=== PATIENT | male | born 1940 | race Caucasian/White ===

== ENCOUNTER 2019-04-18 17:03 | Emergency (ER) | payer MEDICARE ==
[~2019-04-18] VITALS: Ht 182.9 cm; Wt 77.1 kg
[~2019-04-18 17:03] MED LIST: ASPIRIN81 MG PO; CELEBREX100 MG PO; GLYBURIDE5 MG PO; LISINOPRIL PO; METFORMIN HCL1000 MG PO; PRAVASTATIN PO; SOMA350 MG PO; ULTRAM50 MG PO
--- OUTSIDE RECORDS SUMMARY | 2019-04-18 17:07 | XMS REPORT ---
Author Author [facility] Address Unknown Phone Unavailable Care Team Providers [employer] Tender Name Role Phone JOSENIMESH DUMONT SAYED Unavailable Unavailable Payers Payer Name Policy Type Policy Number Effective Date Expiration Date Problems This patient has no known problems. Allergies, Adverse Reactions, Alerts Allergy Name Allergy Type Status Severity Reaction(s) Onset Date Inactive Date Treating Clinician Comments codeine DA Active NE 2018-04-14 00:00:00 hydrocodone DA Active NE 2018-04-14 00:00:00 codeine DA Active NE 2014-12-16 00:00:00 hydrocodone DA Active NE 2014-12-16 00:00:00 Medications This patient has no known medications. Results Test Description Test Time Test Comments Text Results Atomic Results Result Comments POCT-GLUCOSE METER 2018-08-09 07:03:00 POC-GLUCOSE METER (BEAKER) (test mphc=0644) 239 mg/dL 70-110 TESTED AT [address] [address] BASIC METABOLIC [id number] 05:08:00* Test Item Value Reference Range Comments SODIUM (BEAKER) (test zfay=432) 138 meq/L 136-145 POTASSIUM (BEAKER) (test ivxz=832) 4.5 meq/L 3.5-5.1 Specimen slightly hemolyzed CHLORIDE (BEAKER) (test ihki=199) 104 meq/L 98-107 CO2 (BEAKER) (test avqi=975) 26 meq/L 22-29 BLOOD UREA NITROGEN (BEAKER) (test slte=957) 22 mg/dL 7-21 CREATININE (BEAKER) (test jtaj=214) 0.78 mg/dL 0.57-1.25 Specimen slightly hemolyzed GLUCOSE RANDOM (BEAKER) (test bokv=620) 216 mg/dL 70-105 CALCIUM (BEAKER) (test tnmm=260) 8.9 mg/dL 8.4-10.2 EGFR (BEAKER) (test djik=2368) 97 mL/min/1.73 sq m INSUFFICIENT CLINICAL DATA TO CALCULATE ESTIMATED GFR. CBC (HEMOGRAM ONLY)2018-08-09 04:40:00* Test Item Value Reference Range Comments WHITE BLOOD CELL COUNT (BEAKER) (test twdv=612) 5.5 K/ L 3.5-10.5 RED BLOOD CELL COUNT (BEAKER) (test vzef=333) 3.87 M/ L 4.63-6.08 HEMOGLOBIN (BEAKER) (test dxqn=864) 10.9 GM/DL 13.7-17.5 HEMATOCRIT (BEAKER) (test xthp=075) 33.6 % 40.1-51.0 MEAN CORPUSCULAR VOLUME (BEAKER) (test szip=670) 86.8 fL 79.0-92.2 MEAN CORPUSCULAR HEMOGLOBIN (BEAKER) (test bsgr=163) 28.2 pg 25.7-32.2 MEAN CORPUSCULAR HEMOGLOBIN CONC (BEAKER) (test ksxl=058) 32.4 GM/DL 32.3-36.5 RED CELL DISTRIBUTION WIDTH (BEAKER) (test ttsn=518) 14.8 % 11.6-14.4 PLATELET COUNT (BEAKER) (test pucg=555) 196 K/CU MM 150-450 MEAN PLATELET VOLUME (BEAKER) (test hodh=750) 9.9 fL 9.4-12.4 NUCLEATED RED BLOOD CELLS (BEAKER) (test slix=564) 0 /100 WBC 0-0 [id number] 16:04:00* Test Item Value Reference Range Comments ACTIVATED CLOTTING TIME (BEAKER) (test fqwk=595) 131 sec TESTED AT [place] [id number] [facility] [address] [id number] 12:30:00* Test Item Value Reference Range Comments ACTIVATED CLOTTING TIME (BEAKER) (test gcwb=233) 197 sec TESTED AT [place] [address]120 [facility] [address] POCT-GLUCOSE [id number] 10:48:00* Test Item Value Reference Range Comments POC-GLUCOSE METER (BEAKER) (test kcsz=5521) 156 mg/dL 70-[address] [facility] [address] [facility] [address] [id number] 09:28:00* Test Item Value Reference Range Comments ACTIVATED CLOTTING TIME (BEAKER) (test tjeg=832) 362 sec TESTED AT [address] [address] BASIC METABOLIC [id number] 07:21:00* Test Item Value Reference Range Comments SODIUM (BEAKER) (test ggeh=161) 138 meq/L 136-145 POTASSIUM (BEAKER) (test otec=494) 4.0 meq/L 3.5-5.1 CHLORIDE (BEAKER) (test cxvu=423) 103 meq/L 98-107 CO2 (BEAKER) (test rtki=780) 26 meq/L 22-29 BLOOD UREA NITROGEN (BEAKER) (test sdqn=591) 26 mg/dL 7-21 CREATININE (BEAKER) (test xmao=201) 0.79 mg/dL 0.57-1.25 GLUCOSE RANDOM (BEAKER) (test bzzh=584) 140 mg/dL 70-105 CALCIUM (BEAKER) (test bqwe=125) 8.9 mg/dL 8.4-10.2 EGFR (BEAKER) (test zlqj=3162) 95 mL/min/1.73 sq m INSUFFICIENT CLINICAL DATA TO CALCULATE ESTIMATED GFR. CBC (HEMOGRAM ONLY)2018-08-08 07:00:00* Test Item Value Reference Range Comments WHITE BLOOD CELL COUNT (BEAKER) (test ushv=457) 6.2 K/ L 3.5-10.5 RED BLOOD CELL COUNT (BEAKER) (test zquv=325) 4.07 M/ L 4.63-6.08 HEMOGLOBIN (BEAKER) (test oozj=313) 11.3 GM/DL 13.7-17.5 HEMATOCRIT (BEAKER) (test zlep=655) 36.1 % 40.1-51.0 MEAN CORPUSCULAR VOLUME (BEAKER) (test jbja=052) 88.7 fL 79.0-92.2 MEAN CORPUSCULAR HEMOGLOBIN (BEAKER) (test zkim=214) 27.8 pg 25.7-32.2 MEAN CORPUSCULAR HEMOGLOBIN CONC (BEAKER) (test aafr=732) 31.3 GM/DL 32.3-36.5 RED CELL DISTRIBUTION WIDTH (BEAKER) (test mbiq=212) 14.9 % 11.6-14.4 PLATELET COUNT (BEAKER) (test wltl=086) 203 K/CU MM 150-450 MEAN PLATELET VOLUME (BEAKER) (test lstk=560) 9.7 fL 9.4-12.4 NUCLEATED RED BLOOD CELLS (BEAKER) (test ktzv=317) 0 /100 WBC 0-0 BONE [id number] 12:34:00 RUN DATE: 04/18/18 [place] [facility] [employer] [facility] PAGE 1 RUN TIME: 1234 Specimen Inqui ry RUN USER: INTERFACE PATIENT: JAIMEE QUISPE ACCT #: [id number] LOC: [facility] U #: [id number] AGE/SX: 77/M ROOM: RE04/14/18REG DR: Dima Ventura MD : 40 BED: DIS: STATUS: DIS RCR TLOC: SPEC #: [id number] RECD: 04/14/18 STATUS: JAMIA SILVER #: [id number] BRITTANY: 04/14/18 DR: Dima Ventura MD ENTERED: 04/14/18 SP TYPE: BON MARROW OTHR DR: ORDERED: GROSS PROCEDURES: GROSS (04/17/18) TISSUES: BONE MARROW, NOS - BX, CLOT, SMEARS CLINICAL HISTORY COLLECTION DATE: 04/14/2018 ANEMIA COMMENT Corresponding flow cytometry ([facility], [id number]) did not detect any abnormality. CD34 i mmunostain shows 1% blasts (within normal limits). Morphologic evaluation reve als a normocellular marrow for age (25% cellularity) with decreased iron stores (0-1 on a scale of 0 to 4), trilineage hematopoiesis, and mild erythroid changes (atypia of 1 on a scale of 0 to 4). The erythroid changes are mild and can be reactive. However, a myelodysplastic process cannot be entirely ruled out. No lymphoma, acute leukemia, or infiltrative process is detected. Clinical joanne elation is recommended. Conventional cytogenetics and MDS FISH panel are in pr ocess and will be reported in an addendum. FINAL DIAGNOSIS Periphera l blood, bone marrow aspirate, clot section, trephine biopsy (iliac crest): NORMOCELLULAR MARROW WITH MILD ERYTHROID CHANGES AND NO INCREASE IN BLASTS SEE COMMENT BOBY/sm D 41930, 87502, (2)51277, 61069, (3)13768, [phone], 49865 FLOW CYTOMETRY Flow cytomet ry technical component is performed at [facility] and theprofessional component performed at [facility]. The following flow cytometry reportis transcribed below. Please see for any additional information. Clin ical Data CONTINUED ON NEXT PAGE --RUN DATE: 04/18/18 [facility] [facility] [employer] [facility] PAGE 2 RUN TIME: 1234 Specimen Inquiry RUN USER: INTERFACE SPEC #: [id number] PATIENT: JOSE ENRIQUEJAIMEE DURON CYRUS #[id number] (Continued) FLOW CYTOMETRY (Continued) Anemia Interpretation- NO B-CELL CLONALITY OR ABERRANT T-CELL ANTIG EN EXPRESSION- NO INCREASE IN BLASTS Comment:No flow cytometric features of acut e leukemia or non-Hodgkin lymphoma are identified.Morphologic evaluation is in p rocess and will be reported separately. Results Populations IdentifiedMyeloblas ts: 0.4%B-Cells: 1.7% surface-kappa:lambda ratio: 1.3:1 (consistent with polyclo nal B-Cellpopulation)Hematogones: 0.2%T-Cells: 7.0% CD4:CD8 ratio: 1.6:1 (consis tent with benign T-Cell population)NK-Cells: 1.6%Plasma cells: 0.3%Granulocytes: 80.5%Monocytes: 6.2%Viability: 96.9% The remaining events consist of debris and non-staining forms. Evaluated MarkersCD2, CD3, CD4, CD5, CD7, CD8, CD10, CD11b, CD13, CD14, CD16, CD19, CD20, CD22, CD23, CD33,CD34, CD38, CD45, CD56, CD57, CD 64, CD103, CD117, FMC-7, HLA-DR, surface kappa, surfacelambda, 7-AAD (Total vargas ers: 29) This test was developed and its performance characteristics determined by [facility]. It has not been cleared or approved by the U.S. Food and Drug Administration. The FDA has determined thatsuch clearance is not necessary. This test is used for clinicalpurposes. It should not be regarded as investigat ional or for research. This laboratory iscertified under the Clinical Laboratory Improvement Amendments of 1988 (CLIA-88) asqualified to perform high complexity clinical testing. The above report was reviewed and interpretive comments are p rovided. The comments areapproved for the medical records of the identified violet ent with my electronic signature. Electronic SignatureAditya Ritchie Technical component was performed at [facility], [address], [place] [address]. The Professional component [facility] performed at [facility], [address] [place] [address]. CONTINUED ON NEXT PAGE RUN DATE: 04/18/18 [facility] PAGE 3 RUN TIME: 1234 Specimen Inquiry RUN USER: INTERF LILLY SPEC # : [id number] PATIENT: KRISTENTANNERJAIMEE SCOTT JANINA #[id number] (Cont inued) MACROSCOPIC The specimen consists of a peripher al blood smear and aspirate smear slides for processing and evaluation. Recei ricardo in formalin, in a container labeled with the patient's name is a miniscule shepard-red tissue compatible with core biopsy measuring 0.3 cm in length by 0.15 cm in diameter. The tissue is entirely submitted in cassette labeled bx for light decalcification. Received in formalin in another container labeled with the patient's name are red blood clot material measuring 1.5 X 1.0 X 0.2 cm in aggregate. The blood clot is strained through a biopsy bag and entirely sub mitted in cassette labeled clot. Iron stains will be prepared on an aspirate smear slide, core biopsy and clot section. Aspirate material will be sent to [facility] for flow cytometry and other studies. GROSS PERFOR MED AT [facility] [address] [place], [place] [address] [phone])[phone] MICROSCOPIC Microscopic Descripti on: PERIPHERAL BLOOD SMEAR: Red blood cells: Normocytic normochromic. White blood cells: Morphologically within normal limits; No blasts identified. Platelets: Within normal limits. Accompanying CBC report (Date: 8): WBC: 5.6 K/micL Hgb: 9.8 g/dL MCV: 87.4 fL RDW: 15.7% Plt: 185 K/micL 100 cell manual differential count was performed: Neut: 59% Lymph: 21% Tattnall: 16% Eos: 4% Baso: 1% BONE MARROW: Yaneth quacy and general findings Aspirate: Adequate Percentages of 200 cells counted on aspirate smear (Reference ranges are in parentheses): CONTINUED ON NEXT PAGE RUN DATE: 04/18/18 [place] [facility] [employer] [facility] PAGE 4 RUN TIME: 1234 Specimen Inquiry RUN USER: I NTERFACE S PEC #: [id number] PATIENT: JAIMEE QUISPE #[id number] (Continued) MICROSCOPIC (Continued) Myeloblasts: 0 (0-3%) Promyelocytes: 1 (1-8%) Myelocytes: 10 (10-15%) Metamyelocytes: 12 (10-15%) Band/Neutrophils: 33 (25-40%) Eosinophils: 3 (1-5%) Basophils: 0 (0-1%) Lymphocytes: 7 (10-15%) Plasma cells: 1 (0-1%) Monocytes: 5 (0-2%) Proerythroblasts: 2 (0-2%) Other erythroid elements: 26 (15-25%) M:E ratio: 2.1:1 (1.5:1 - 4:1) Core biopsy: Small biopsy; contains margin ally adequate amount of marrow. Bone abnormality: Absent. Clot secti on: Contains low amount of marrow. Cellularity: 25%, normocellular for age. Hematopoietic elements Myeloid: Surveying Crew Rodman and progressive maturation. E rythroid: Show few occasional irregular nuclear contours. Megakaryocytes: Yaneth quate in number and morphology. Infiltrates Blasts: Not inc reased Monocytic cells: Comprise 5% of marrow cellularity and mainly consists of mature forms. Plasma cells: Not increased Lymphoid aggregates: Absent Granulomas: Absent Metastases: Absent Fibrosis: Not identified on routine H E stain Amorphous materials such as amyloid: Not identified on routine H E stain Immunostains with appropriate controls (pe rformed at [facility] and interpreted at [facility]): CD34 orr 1% blasts in single form (within normal limits). Iron stains with a ppropriate controls: On core biopsy, clot section and aspirate smear : Overall, the 3 stains show: Iron stores: 0-1 (scale o f 0 of 4) Ring sideroblasts: Absent MICROSCOPIC PERFORMED AT [facility] [address] CONTINUED ON NEXT PAGE RUN DATE: 04/18/18 [facility] PAGE 5 RUN TIME: 1234 Specimen Inquiry RUN USER: INTERFACE SPEC #: [id number] PATIENT: JAIMEE QUISPE #[id number] (Continued) MICROSCOPIC (Continued) T[place]ON [place] [address] [address] Diagnosis performed at: [facility] [address] [facility] [place] [address] Signed SIGNATURE ON FILE O ChristieSheeba 04/18/18 1234 END OF REPORT BONE [id number] 12:34:00 RUN DATE: 05/02/18 [facility] [facility] [employer] [facility] PAGE 1 RUN TIME: 1111 Specimen Inqui ry RUN USER: INTERFACE PATIENT: JAIMEE QUISPE ACCT #: [id number] LOC: [facility] U #: [id number] AGE/SX: 77/M ROOM: RE04/14/18REG DR: Dima Ventura MD : 40 BED: DIS: STATUS: DIS RCR TLOC: SPEC #: [id number] RECD: 04/14/18 STATUS: JAMIA [facility] #: [id number] BRITTANY: 04/14/18 DR: Dima Ventura MD ENTERED: 04/14/18 SP TYPE: BON MARROW OTHR DR: ORDERED: GROSS PROCEDURES: GROSS (04/17/18) TISSUES: BONE MARROW, NOS - BX, CLOT, SMEARS CLINICAL HISTORY COLLECTION DATE: 04/14/2018 ANEMIA COMMENT Corresponding flow cytometry ([facility], [id number]) did not detect any abnormality. CD34 i mmunostain shows 1% blasts (within normal limits). Morphologic evaluation reve als a normocellular marrow for age (25% cellularity) with decreased iron stores (0-1 on a scale of 0 to 4), trilineage hematopoiesis, and mild erythroid changes (atypia of 1 on a scale of 0 to 4). The erythroid changes are mild and can be reactive. However, a myelodysplastic process cannot be entirely ruled out. No lymphoma, acute leukemia, or infiltrative process is detected. Clinical joanne elation is recommended. Conventional cytogenetics and MDS FISH panel are in pr ocess and will be reported in an addendum. CYTOGENETICS Addendum #1 Entered: 04/27/18 A cytogenetics report is received from [facility] ( [id number]) and the interpretation istranscribed below. Clinical DataAnemia In terpretation ABNORMAL CHROMOSOME ANALYSIS WITH A +15 CLONEKARYOTYPE: 47,XY,+15 [2]/46,XY[19] An abnormal clone with an extra chromosome 15 was observed in two out of twenty-one cellsanalyzed in this patient's specimen. The nineteen remaini ng cell(s) had a normal male (XY) CONTINUED ON NEXT PAGE RUN DATE: 05/02/18 [facility] PAGE 2 RUN TIME: 1111 Specimen Inquiry RUN USER: INTERFACE SPEC #: [id number] PATIENT: JOSE ENRIQUEBLAKEALFREDO JANINA #[id number] (Continued) CYTOGENETICS (Continued) chromosome complement. Trisomy 15 has been found in the general population of aging males with no underlyinghematologic mal ignancy, but can also be observed in patients with MDS, AML, ALL and CLL. This d oes not exclude the possibility of an abnormality that cannot be detected at the band-resolution of this test, exists at a low residual level, or is due to other etiologies. Interpretation of this specimen s cytogenetic results should be made inconjunction with other clinical and laboratory findings. Metaphases Counted: 23 Culture Type: 24 HR, 48 HRMetaphases Analyzed: 21 Banding Technique: GTGMetaphases Karyotyped: 3 Estelle ng Resolution: 425 Electronic Signature Su Mcgee, PhD Darvin Clark MD CPT C ode(s): 94308(x2),04899,46635,19296,96397PRZ Code(s): D64.9 The Technical and Pr ofessional components were performed at [facility], [address] [place] [address] , [address], [place] [address] . Addendum Signed SIGNATURE ON FILE Drew Olivera 04/28/18 1329 FINAL DIAGNOSI S Peripheral blood, bone marrow aspirate, clot section, trephine biopsy (butch c crest): NORMOCELLULAR MARROW WITH MILD ERYTHROID CHANGES AND NO INC REASE IN BLASTS SEE COMMENT BOBY/sm D 71651, 42308, [phone], 88790, ([phone], ([phone], 73692 CONTINUED ON NEXT PAGE RUN DATE: 05/02/18 [facility] PAGE 3 RUN TIME: 05 28 Specimen Inquiry RUN USER: BARRINGTON CARPENTER SPEC #: [id number] PATIENT: JAIMEE QUISPE #[id number] (Co ntinued) FISH Addendum #1 Entered: 04/17 01/02-1110 An MDS FISH report is received from [facility] ([id number]) and the interpre tation is transcribedbelow. Clinical DataAnemia InterpretationMDS PANEL: NORMAL; No abnormalities detected on 5q, CEN7, 7q, CEN8, or 20q. Comment:nuc marce(U7R550 /J3F0936,EGR1) x2[200],(D7Z1x2)[200],(Y8S326,F4J814)x2[200],(D8Z2x2)[200],(D20S1 08,MYBL2)x2[200] A total of 200 interphase nuclei were scored for each myelodysp lastic syndrome (MDS) probeset on cultured bone marrow cells and revealed a norm al result. Analyzed Probes:A2V245/F0D4607 (5p15.31) and EGR1 (5q31.2)F7W223 (7q2 2) and G8Q129 (7q31)D7Z1 (7p11.1-7q11.1)D8Z2 (8p11.1-8q11.1)N69A139 (20q12) and MYBL2 (20q13.12)(All probes [employer]Cell) Interphase FISH is performed to screen for the loci indicated above and does not detectother chromosomal abnormalities. Sc oring Process: The scoring for this case was completed using a per cell nuclei a pproachto signal counting and was performed manually by a licensed technologist. Disclaimer: This test was developed and its performance characteristics determi jonah ALTHIA. It has not been cleared or approved by the [place] d and DrugAdministration. The FDA has determined that such clearance is not nece ssary. This test isused for clinical purposes. It should not be regarded as inve stigational or for research.This laboratory is certified under the Clinical Labo ratory Improvement Amendments of 1988(CLIA-88) as qualified to perform high comp lexity clinical testing. Electronic Ursula Clark MD The Technical and P rofessional components were performed at [facility], [address] [place] [address] , [address], [place] [address]. CON TINUED ON NEXT PAGE RUN DATE: 05/02/18 [facility] PAGE 4 RUN TIME: 1111 Specimen Inquiry RUN USER: INTERFACE SPEC #: [id number] PATIENT: JAIMEE QUISPE #[id number] (Continued) FISH (Continued) Addendum Signed SIGNATURE ON FILE Sheeba Doyle 05/02/18 1111 FLOW CYT OMETRY Flow cytometry technical component is performed at [facility] a nd theprofessional component performed at [facility]. The following flow cytometry reportis transcribed below. Please see [id number] for any additional information. Clinical DataAnemia Interpretation- NO B-CELL CLONALITY OR ABERRA NT T-CELL ANTIGEN EXPRESSION- NO INCREASE IN BLASTS Comment:No flow cytometric f eatures of acute leukemia or non-Hodgkin lymphoma are identified.Morphologic france luation is in process and will be reported separately. Results Populations Iden tifiedMyeloblasts: 0.4%B-Cells: 1.7% surface-kappa:lambda ratio: 1.3:1 (consiste nt with polyclonal B-Cellpopulation)Hematogones: 0.2%T-Cells: 7.0% CD4:CD8 ratio : 1.6:1 (consistent with benign T-Cell population)NK-Cells: 1.6%Plasma cells: 0. 3%Granulocytes: 80.5%Monocytes: 6.2%Viability: 96.9% The remaining events consis t of debris and non-staining forms. Evaluated MarkersCD2, CD3, CD4, CD5, CD7, CD 8, CD10, CD11b, CD13, CD14, CD16, CD19, CD20, CD22, CD23, CD33,CD34, CD38, CD45, CD56, CD57, CD64, CD103, CD117, FMC-7, HLA-DR, surface kappa, surfacelambda, 7- AAD (Total markers: 29) This test was developed and its performance characterist ics determined by [facility]. It has not been cleared or approved by the U.S. Food and Drug Administration. The FDA has determined thatsuch clearance is not necessary. This test is used for clinicalpurposes. It should not be regarde d as investigational or for research. This laboratory iscertified under the Clin [facility] Laboratory Improvement Amendments of 1988 (CLIA-88) asqualified to perform high complexity clinical testing. CONTINUED O N NEXT PAGE RUN DATE: 05/02/18 [facility] PAGE 5 RUN TIME: 1111 Specimen Inquiry RUN USER: INTERFACE SPEC #: [id number] PATIENT : JAIMEE QUISPE #[id number] (Continued) FLOW CYTOMETRY (Continued) The above report was reviewed and interpre tive comments are provided. The comments areapproved for the medical records of the identified patient with my electronic signature. Electronic SignatureJosefina Palacios D.O. The Technical component was performed at [facility], [address], [place] [address]. The Professional compo nent was performed at [facility], [address] [place] [address]. MACROSCOPIC The specimen consists of a peripheral blood smear and as pirate smear slides for processing and evaluation. Received in formalin, in a container labeled with the patient's name is a miniscule shepard-red tissue sindhu tible with core biopsy measuring 0.3 cm in length by 0.15 cm in diameter. The tissue is entirely submitted in cassette labeled bx for light decalcification . Received in formalin in another container labeled with the patient's name a re red blood clot material measuring 1.5 X 1.0 X 0.2 cm in aggregate. The blo od clot is strained through a biopsy bag and entirely submitted in cassette la beled clot. Iron stains will be prepared on an aspirate smear slide, core bio psy and clot section. Aspirate material will be sent to [facility] f or flow cytometry and other studies. GROSS PERFORMED AT [facility] [address] [place] [address] [phone]) [phone] MICROSCOPIC Microscopic Description: PERIPHERAL BLOOD SMEAR: Red blood cells: Normocytic normochromic. White blood cells: Morphologically within normal limits; No blasts identified. Platelets: Within normal limits. Accompanying CBC report (Date: 04/14/18): WBC: 5. 6 K/micL Hgb: 9.8 g/dL MCV: 87.4 fL RDW: 15.7% Plt: 185 K/micL 100 cell manual differential count was performed: Neut: 59% CONTINU ED ON NEXT PAGE RUN DATE: 05/02/18 [facility] PAGE 6 RUN TIME: 1111 Specimen Inquiry RUN USER: INTERFACE SPEC #: [id number] PAT IENT: JAIMEE QUISPE #[id number] (Continued) MICROSCOPIC (Continued) Lymph: 21% Tattnall: 16% Eos: 4% Baso: 1% BONE MARROW: Adequacy and general findings Aspirate: Adequate Percentages of 200 cells counted on aspira te smear (Reference ranges are in parentheses): Myeloblasts: 0 (0-3%) Promyelocytes: 1 (1-8%) Myelocytes: 10 (10-15%) Metamyelocytes: 12 (10-15%) Band/Neutrophils: 33 (25-40%) Eosinophils: 3 (1-5%) Basophils: 0 (0-1%) Lymphocytes: 7 (10-15%) Plasma cells: 1 (0-1%) Monocytes: 5 (0-2%) Proerythroblasts: 2 (0-2%) Other erythroid elements: 26 (15-25%) M:E ratio: 2.1:1 (1.5 :1 - 4:1) Core biopsy: Small biopsy; contains marginally adequate amount of marrow. Bone abnormality: Absent. Clot section: Contains low chris unt of marrow. Cellularity: 25%, normocellular for age. Hematopoietic e lements Myeloid: Surveying Crew Rodman and progressive maturation. Erythroid: Show few oc casional irregular nuclear contours. Megakaryocytes: Adequate in number and m orphology. Infiltrates Blasts: Not increased Monocytic ce lls: Comprise 5% of marrow cellularity and mainly consists of mature forms. Plasma cells: Not increased Lymphoid aggregates: Absent Granulomas: Absent Metastases: Absent Fibrosis: Not identified on rou gurpreet H E stain Amorphous materials such as amyloid: Not identified on routine H E stain Immunostains with appropriate controls (performed at [facility] and interpreted at [facility]): CD34 orr 1% blasts in s rafael form (within normal limits). CONTINUED O N NEXT PAGE RUN DATE: 05/02/18 [facility] PAGE 7 RUN TIME: 1111 Specimen Inquiry RUN USER: INTERFACE SPEC #: [id number] PATIENT : JAIMEE QUISPE #[id number] (Continued) MICROSCOPIC (Continued) Iron stains with appropriate contro ls: On core biopsy, clot section and aspirate smear: Ariande garrett, the 3 stains show: Iron stores: 0-1 (scale of 0 of 4) Ring sideroblasts: Absent MICROSCOPIC PERFORMED AT [facility] [address] [place], [place] [address] PERFORMING SITE Diagnosis performed at: [facility] [address] [place] [address] Signed SIGNATURE ON FILE O ChristieSheeba 04/18/18 1234 END OF REPORT
--- OUTSIDE RECORDS SUMMARY | 2019-04-18 17:08 | XMS REPORT | Encounter Summary ---
Author Organization Unknown Address [address] [place] [address] Phone [phone] Care Team Providers Care Water Project Engineer Name Role Phone Dr. Pacheco García 3 [phone] Zeynep Tapia MD 82 [phone] Mark Medina MD 107 [phone] Rima Figueroa OD 111 [phone] Dima Ventura MD 188 [phone] Reason for Visit lab only visit Instructions 1. Hyperkalemia potassium, serum CMP, serum or plasma 2. Iron deficiency anemia CBC w/ auto diff Discussion Note: None recorded. Patient educational handouts: No information available. Plan of Care Reminders Provider Appointments Return to Office on or around 03/02/2019 Pacheco Deutsch MD Lab Potassium, Serum 12/15/2018 [facility] CBC W/ Auto Diff 12/15/2018 [facility] CMP, Serum or Plasma 12/15/2018 [facility] Referral None recorded. Procedures None recorded. Surgeries None recorded. Imaging None recorded. Medications Name Start Date celecoxib 200 mg capsule TAKE ONE CAPSULE BY MOUTH EVERY DAY WITH MEALS NEEDED. clopidogrel 75 mg tablet Take 1 tablet every day by oral route. Co Q-10 200 mg capsule Take one tablet by mouth twice a day escitalopram 10 mg tablet Take 1 tablet every day by oral route as directed for 30 days. fluticasone propionate 50 mcg/actuation nasal spray,suspension gabapentin 300 mg capsule TAKE ONE CAPSULE BY MOUTH ONCE A DAY NEEDED glimepiride 2 mg tablet TAKE 1 TABLET BY MOUTH EVERY DAY lisinopril 2.5 mg tablet TAKE 1 TABLET BY MOUTH EVERY DAY Longs Adult Low Strength ASA 81 mg tablet,delayed release Take 1 tablet every day by oral route. magnesium oxide 400 mg (241.3 mg magnesium) tablet Take 2 tablets every day by oral route in the evening. metformin 1,000 mg tablet TAKE 1 TABLET BY MOUTH TWICE A DAY montelukast 10 mg tablet TAKE 1 TABLET BY MOUTH EVERY DAY DIRECTED nitroglycerin 0.4 mg sublingual tablet 1 TAB NEEDED omeprazole 40 mg capsule,delayed release TAKE ONE CAPSULE BY MOUTH ONCE IN THE MORNING rosuvastatin 20 mg tablet TAKE 1 TABLET BY MOUTH ONCE IN THE EVENING tamsulosin 0.4 mg capsule TAKE 1 CAPSULE BY MOUTH EVERY DAY tramadol 50 mg tablet TAKE 1 TABLET BY MOUTH EVERY DAY NEEDED Medications Administered None recorded. Vitals None recorded. Lab Results Date Name Specimen Result Interpretation Description Value Range Status Address 11/30/2018 CMP, Serum or Plasma Alt 16 U/L 0-55 U/L Final [facility]: [address] Ast 17 U/L 5-34 U/L Final [facility]: [address] High Bun 29.3 mg/dL 8.4-25.0 mg/dL Final [facility]: [address] Alk Phos 80 unit/L 40-150 unit/L Final [facility]: [address] Glucose 88 mg/dL 70-99 mg/dL Final [facility]: [address] Albumin 3.8 g/dL 3.4-5.1 g/dL Final [facility]: [address] Creatinine 1.20 mg/dL 0.72-1.25 mg/dL Final [facility]: [address] ABNORMAL eGFR Non- 59 mL/min/1.73m2 Final [facility]: [address] Total Bilirubin 0.2 mg/dL 0.2-1.2 mg/dL Final [facility]: [address] eGFR - >60 mL/min/1.73m2 Final [facility]: [address] [place] [address], [place] Sodium 142 mEq/L 135-145 mEq/L Final [facility]: [address] High Potassium 5.4 mEq/L 3.5-5.1 mEq/L Final [facility]: [address] Chloride 109 mmol/L 98-110 mmol/L Final [facility]: [address] Total Protein 6.1 g/dL 6.1-8.2 g/dL Final [facility]: [address] [facility] Low Calcium 8.7 mg/dL 9.0-10.2 mg/dL Final [facility]: [address] Co2 24.4 mmol/L 20.0-32.0 mmol/L Final [facility]: [address] Anion Gap 9 calc Final [facility]: [address] [place] [address], [place] 11/30/2018 Lipid Panel, Serum Low Hdl 38 mg/dL >40 mg/dL Final [facility]: [address] [place] [address] [place] High Triglyceride 151 mg/dL <150 mg/dL Final [facility]: [address] VLDL Calc. 30 mg/dL Final [facility]: [address] cholesterol/HDL Ratio 3.5 mg/dL Final [facility]: [address] non-HDL Cholesterol Calc. 96 mg/dL <160 mg/dL Final [facility]: [address] Cholesterol 134 mg/dL <200 mg/dL Final [facility]: [address] LDL Calc. 66 mg/dL <130 mg/dL Final [facility]: [address] [place] [address], [place] 11/30/2018 HbA1C (Hemoglobin a1C), Blood High A1C W/eag 6.1 % 1.0-5.7 % Final [facility]: [address] Average Blood Glucose 128 mg/dL Final [facility]: [address] Allergies Code Code System Name Reaction Severity Status Onset 2670 RxNorm Codeine Active Problems Name Status Onset Date Source Type 2 Diabetes Mellitus without Complication Active 05/17/2016 Mixed Hyperlipidemia Active 05/17/2016 Hyperkalemia Active 05/17/2016 Body Mass Index 25-29 - Overweight Active 05/17/2016 Anemia Active 05/17/2016 Gastroesophageal Reflux Disease without Esophagitis Active 05/17/2016 Benign Essential Hypertension Active 08/03/2016 Atherosclerosis of Aorta Active 11/23/2016 Chronic Pancreatitis Active 11/23/2016 Benign Prostatic Hyperplasia Active 11/23/2016 Low Back Pain Active 11/23/2016 Carotid Bruit Active 11/23/2016 Angina Pectoris Active 01/03/2017 Chronic Back Pain Active 02/22/2017 Decreased Testosterone Level Active 03/02/2017 Diabetic Neuropathy Active 11/30/2018 Procedures Date Name Performed by 01/15/2018 Colonoscopy Information not available 09/19/2015 Colonoscopy Information not available Carotid Endarterectomy Information not available Tonsillectomy Information not available Appendectomy Information not available Cholecystectomy (Gall Bladder Removal) Information not available Back Surgery Information not available Vaccine List Vaccine Type Hep B, adult 06/29/2016 08/03/2016 01/03/2017 influenza, high dose seasonal 04/08/20160.5 mL 04/12/20170.5 mL 03/30/20180.5 mL influenza, unspecified formulation 06/17/2015 pneumococcal conjugate PCV 13 08/03/20160.5 mL pneumococcal polysaccharide PPV23 03/30/20180.5 mL zoster 11/23/20160.65 mL Social History Smoking Status Former Smoker Past Encounters 12/15/2018 Hyperkalemia; Iron Deficiency Anemia Pacheco Deutsch MD: [address] [place] [address], Ph. 11/30/2018 Irritability and Anger; Type 2 Diabetes Mellitus; Hyperlipidemia; Chronic Back Pain; Benign Prostatic Hyperplasia; Diabetic Neuropathy; Angina Pectoris; Anemia; Stented Coronary Artery; Body Mass Index 25-29 - Overweight Pacheco Deutsch MD: [address] [place] [address], Ph. History of Present Illness None recorded. Review of Systems None recorded. Physical Exam None recorded.
--- OUTSIDE RECORDS SUMMARY | 2019-04-18 17:08 | XMS REPORT | Encounter Summary ---
Author Organization Unknown Address [address] [place] [address] Phone [phone] Care Team Providers Care Cyber Systems Operations Specialist Name Role Phone Dr. Pacheco García 3 [phone] Zeynep Tapia MD 82 [phone] Mark Medina MD 107 [phone] Rima Figueroa OD 111 [phone] Dima Ventura MD 188 [phone] Reason for Visit Chronic back pain; Type 2 diabetes mellitus without complication Instructions 1. Irritability and anger escitalopram 10 mg tablet 2. Type 2 diabetes mellitus metformin 1,000 mg tablet HbA1c (hemoglobin A1c), blood glimepiride 2 mg tablet 3. Hyperlipidemia high cholesterol: care instructions lipid panel, serum CMP, serum or plasma 4. Chronic back pain celecoxib 200 mg capsule 5. Benign prostatic hyperplasia 6. Diabetic neuropathy gabapentin 300 mg capsule 7. Angina pectoris 8. Anemia 9. Stented coronary artery clopidogrel 75 mg tablet 10. Body mass index 25-29 - overweight learning about healthy weight Discussion Note: None recorded. Plan of Care Reminders Provider Appointments Return to Office on or around 03/02/2019 Pacheco Deutsch MD Lab HbA1C (Hemoglobin a1C), Blood 11/30/2018 [facility] Lipid Panel, Serum 11/30/2018 [facility] CMP, Serum or Plasma 11/30/2018 [facility] Referral None recorded. Procedures None recorded. [...] oral route as directed for 30 days. gabapentin 300 mg capsule TAKE ONE CAPSULE [...] DAY NEEDED Medications Administered None recorded. Vitals Height Weight BMI Blood Pressure 5 ft 5 in 171 lbs 28.5 kg/m2 (1) 100/58 mm[Hg] (2) 111/57 mm[Hg] Lab Results None recorded. Allergies Code Code System Name Reaction Severity Status Onset 2669 RxNorm Codeine Active Problems Name Status Onset [...] History Smoking Status Former Smoker Past Encounters 11/30/2018 Irritability and Anger; Type 2 Diabetes Mellitus; Hyperlipidemia; Chronic Back Pain; Benign Prostatic Hyperplasia; Diabetic Neuropathy; Angina Pectoris; Anemia; Stented Coronary Artery; Body Mass Index 25-29 - Overweight Pacheco Julio César Deutsch MD: [address] [place] [address], Ph. History of Present Illness Note:F/u on chronic conditions. Needs refills. Compliant with meds, diet and exercise. Glucose readings at home 150s-160s fasting. Not checking BPs at home. No side effects. Complaining of persistent irritability and angriness on and off since a few months ago. Denies anxiety/depression, suicidal/homicidal thoughts. Review of Systems Comprehensive General Adult ROS Reported By: Patient Constitutional: Constitutional: no fever Eyes: Eyes: no vision change Cardiovascular: Cardiovascular: no chest pain, no palpitations, no lightheadedness Respiratory: Respiratory: no cough, no wheezing, no shortness of breath Gastrointestinal: Gastrointestinal: no abdominal pain, no nausea, no vomiting, no constipation, no diarrhea Musculoskeletal: Musculoskeletal: back pain Neurologic: Neurologic: no loss of consciousness, no headaches Psychiatric: Psych: no depression, no alcohol abuse, no anxiety, no suicidal thoughts Physical Exam General Adult Exam (male) Reported By: Patient Constitutional: General Appearance: healthy-appearing, overweight. Level of Distress: NAD. Ambulation: ambulating normally Psychiatric: Insight: good judgement. Mental Status: active and alert, normal mood, normal affect. Orientation: to time, to place, to person. Memory: recent memory normal, remote memory normal Eyes: Lids and Conjunctivae: non-injected, no discharge Neck: Neck: supple, trachea midline Lungs: Auscultation: breath sounds normal Cardiovascular: Heart Auscultation: RRR, normal S1, normal S2, no murmurs Musculoskeletal:: Motor Strength and Tone: normal, normal tone. Joints, Bones, and Muscles: normal movement of all extremities, no contractures, no bony abnormalities, no malalignment, no tenderness. Extremities: no edema Neurologic: Gait and Station: normal gait. Cranial Nerves: grossly intact. Coordination and Cerebellum: no tremor
--- OUTSIDE RECORDS SUMMARY | 2019-04-18 17:08 | XMS REPORT | Encounter Summary ---
Author Organization Unknown Address [address] [place] [address] Phone [phone] Care Team Providers Care Carpenter'S Helper Name Role Phone Dr. Pacheco García 3 [phone] Zeynep Tapia MD 82 [phone] Mark Medina MD 107 [phone] Rima Figueroa 111 [phone] Dima Ventura MD 188 [phone] Reason for Visit lab only visit Instructions 1. Hyperkalemia potassium, serum Discussion Note: None recorded. Patient educational handouts: No information available. Plan of Care Reminders Provider Appointments Return to Office on or around 03/02/2019 Pacheco Deutsch MD Lab Potassium, Serum 12/15/2018 [facility] Referral None recorded. Procedures [...] Plasma Alt 16 U/L 0-55 U/L Final [facility]: [address] Ast 17 U/L 5-34 U/L Final [facility]: [address] High Bun 29.3 mg/dL 8.4-25.0 mg/dL Final [facility]: [address] Alk Phos 80 unit/L 40-150 unit/L Final [facility]: [address] Glucose 88 mg/dL 70-99 mg/dL Final [facility]: [address] Albumin 3.8 g/dL 3.4-5.1 g/dL Final [facility]: [address] Creatinine 1.20 mg/dL 0.72-1.25 mg/dL Final [facility]: [address] ABNORMAL eGFR Non- 59 mL/min/1.73m2 Final [facility]: [address] Total Bilirubin 0.2 mg/dL 0.2-1.2 mg/dL Final [facility]: [address] eGFR - >60 mL/min/1.73m2 Final [facility]: [address] Sodium 142 mEq/L 135-145 mEq/L Final [facility]: [address] High Potassium 5.4 mEq/L 3.5-5.1 mEq/L Final [facility]: [address] Chloride 109 mmol/L 98-110 mmol/L Final [facility]: [address] Total Protein 6.1 g/dL 6.1-8.2 g/dL Final [facility]: [address] [place] [address] Low Calcium 8.7 mg/dL 9.0-10.2 mg/dL Final [facility]: [address], [place] Co2 24.4 mmol/L 20.0-32.0 mmol/L Final [facility]: [address] [facility] Anion Gap 9 calc Final [facility]: [address], [place] 11/30/2018 Lipid Panel, Serum Low Hdl 38 mg/dL >40 mg/dL Final [facility]: [address] [place] [address], [place] High Triglyceride 151 mg/dL <150 mg/dL Final [facility]: [address] [place] [address], [place] VLDL Calc. 30 mg/dL Final [facility]: [address] cholesterol/HDL Ratio 3.5 mg/dL Final [facility]: [address] non-HDL Cholesterol Calc. 96 mg/dL <160 mg/dL Final [facility]: [address] Cholesterol 134 mg/dL <200 mg/dL Final [facility]: [address] LDL Calc. 66 mg/dL <130 mg/dL Final [facility]: [address] [place] [address], [place] 11/30/2018 HbA1C (Hemoglobin a1C), Blood High A1C W/eag 6.1 % 1.0-5.7 % Final [facility]: [address] Average Blood Glucose 128 mg/dL Final [facility]: [address] Allergies Code Code System Name Reaction Severity Status Onset 8288 RxNorm Codeine Active Problems Name Status Onset [...] Smoking Status Former Smoker Past Encounters 12/15/2018 Hyperkalemia Pacheco Deutsch MD: [address] [place] [address], Ph. 11/30/2018 Irritability and Anger; Type 2 Diabetes Mellitus; Hyperlipidemia; Chronic Back Pain; Benign Prostatic Hyperplasia; Diabetic Neuropathy; Angina Pectoris; Anemia; Stented Coronary Artery; Body Mass Index 25-29 - Overweight Pacheco Deutsch MD: [address] [place] [address], Ph. History of Present Illness None recorded. Review of Systems None recorded. Physical Exam None recorded.
--- OUTSIDE RECORDS SUMMARY | 2019-04-18 17:08 | XMS REPORT ---
Author Organization Unknown Address [address] [place] [address] Phone [phone] Care Team Providers Care Director Of Analytics Name Role Phone SAYED JADEN BARONE 82 [phone] LUDY YEN MD 107 [phone] HANNAH CARRILLO MD 3 [phone] Allergies Code Code System Name Reaction Severity Status Onset 2670 RxNorm Codeine Active Medications Name Status Start Date Stop Date amoxicillin 500 mg capsule Completed 04/08/2016 amoxicillin 875 mg tablet Completed 11/23/2016 azithromycin 250 mg tablet Completed 10/19/2017 Bromfed DM 2 mg-30 mg-10 mg/5 mL syrup Take 10 mL every 4 hours by oral route. Completed 10/19/2017 bvcnqxwgyg-dqckbdkajdsdf-eqgpxssp 50 mg-325 mg-40 mg capsule Take 1 capsule as needed by oral route. Completed 04/08/2016 rbucigzyec-ytccvkubrothn-fpmeczry 50 mg-325 mg-40 mg tablet Completed 04/08/2016 carisoprodol 350 mg tablet TAKE 1 TABLET BY MOUTH 3 TIMES A DAY Completed 06/29/2016 ceftriaxone 1 gram solution for injection Take 1 g by injection route. Completed 10/19/2017 celecoxib 200 mg capsule TAKE ONE CAPSULE BY MOUTH EVERY DAY WITH MEALS Active Not available cephalexin 500 mg capsule Completed 11/02/2016 chlorhexidine gluconate 0.12 % mouthwash ONCE DAILY Completed 01/03/2017 ciprofloxacin 750 mg tablet Take 1 tablet every 12 hours by oral route as directed for 10 days. Active Not available clopidogrel 75 mg tablet Active Not available Co Q-10 200 mg capsule Take one tablet by mouth twice a day Active Not available Creon 24,000-76,000-120,000 unit capsule,delayed release Completed 04/08/2016 cyclobenzaprine 5 mg tablet Take 1 tablet every day by oral route. Completed 11/02/2016 Denta 5000 Plus 1.1 % cream Take by dental route. Completed 04/08/2016 dexamethasone 4 mg/mL injection solution Take 2 mL by injection route. Completed 07/12/2017 Dexilant 60 mg capsule, delayed release Take 1 capsule as needed by oral route. Completed 11/02/2016 doxycycline monohydrate 100 mg tablet Take 1 tablet twice a day by oral route as directed for 10 days. Completed 11/04/2016 Fioricet 50 mg-300 mg-40 mg capsule Take 1 capsule as needed by oral route. Completed 06/29/2016 fluticasone 50 mcg/actuation nasal spray,suspension Completed 09/29/2017 gabapentin 300 mg capsule Active Not available gabapentin 600 mg tablet Completed 02/22/2017 glimepiride 2 mg tablet Active Not available glimepiride 4 mg tablet Completed 04/08/2016 Kenalog 40 mg/mL suspension for injection Take 1 mL by injection route. Completed 10/19/2017 ketorolac 0.4 % eye drops TID Completed 09/29/2017 ketorolac 0.5 % eye drops Instill 1 drop 3 times a day by ophthalmic route for 7 days. Completed 07/12/2017 lisinopril 10 mg tablet TAKE 1 TABLET BY MOUTH EVERY DAY Completed 08/03/2016 lisinopril 2.5 mg tablet TAKE 1 TABLET BY MOUTH EVERY DAY Active Not available Longs Adult Low Strength ASA 81 mg tablet,delayed release Take 1 tablet every day by oral route. Active Not available loratadine 10 mg tablet Take 1 tablet every day by oral route at bedtime for 10 days. Completed 11/23/2016 Lotemax 0.5 % eye gel drops Completed 09/29/2017 magnesium oxide 400 mg tablet Take 2 tablets every day by oral route in the evening. Active Not available metformin 1,000 mg tablet Active Not available metformin 500 mg tablet Completed 01/03/2017 metronidazole 500 mg tablet Take 1 tablet every 6 hours by oral route as directed for 10 days. Active Not available montelukast 10 mg tablet TAKE 1 TABLET BY MOUTH ONCE A DAY DIRECTED Completed 09/29/2017 kjqylpmv-ygbctydag-tkjypepg 3.5 mg/mL-10,000 unit/mL-0.1% eye drops Completed 07/12/2017 nitroglycerin 0.4 mg sublingual tablet 1 TAB NEEDED Active Not available omeprazole 40 mg capsule,delayed release Active Not available OneTouch Delica Lancets 33 gauge Active Not available OneTouch Ultra Test strips Active Not available OneTouch Ultra2 kit Completed 06/29/2016 pravastatin 40 mg tablet Completed 02/22/2017 ProAir HFA 90 mcg/actuation aerosol inhaler Inhale 2 puffs every 4 hours by inhalation route. Active Not available rosuvastatin 10 mg tablet Take 1 tablet every day by oral route in the evening. Completed 03/02/2017 rosuvastatin 20 mg tablet TAKE ONE TABLET BY MOUTH DAILY IN THE EVENING Active Not available Suprep Bowel Prep Kit 17.5 gram-3.13 gram-1.6 gram oral solution Completed 04/08/2016 tamsulosin 0.4 mg capsule Active Not available Tessalon Perles 100 mg capsule Take 1 capsule 3 times a day by oral route as needed. Completed 06/30/2017 tramadol 37.5 mg-acetaminophen 325 mg tablet Completed 11/23/2016 tramadol 50 mg tablet Take 1 tablet twice a day by oral route as needed. Active Not available Zofran 8 mg tablet Take 1 tablet twice a day by oral route as needed for 7 days. Active Not available Zostavax (PF) 19,400 unit/0.65 mL subcutaneous suspension Completed 01/03/2017 Problems Name Status Onset Date Source Type [...] Active 02/22/2017 Decreased Testosterone Level Active 03/02/2017 Procedures Date Name Performed by 09/19/2015 Colonoscopy Notes: REPEAT IN 5 YRS Information not available Carotid Endarterectomy Notes: Right Information not available Tonsillectomy Information not available Appendectomy Information not available Cholecystectomy Information not available Back Surgery Notes: L4-L5 Herniated Disc Information not available 11/02/2016 Electrocardiogram [facility] [address] [place] [address] ([address]) 10/19/2017 CT, Abdomen + Pelvis, W/wo Contrast [facility] [address] [place] [address] (Work [address]) Notes: Lysis of Adhesions, Abd Lab Results Date Name Specimen Result Interpretation Description Value Range Status Address 09/29/2017 CBC W/ Auto Diff Wbc 8.32 x10*3/L 4.23-9.07 x10*3/L Final [facility]: [address] [place] Low Rbc 3.59 10*12/L 4.63-6.08 10*12/L Final [facility] [address] [facility] Hemoglobin 9.60 g/dL 13.70-17.50 g/dL Final [facility]: [address] [facility] Low Hematocrit 30.6 % 40.1-51.0 % Final [facility]: [address] [facility] Mcv 85.2 fL 80.0-100.[address] [facility]: [address] [facility] Mch 26.7 pg 25.7-32.[address] [facility]: [address] [facility]c 31.4 g/dL 32.3-36.5 g/dL Final [facility]: [address] [facility] High RDW-SD 48.1 fL 35.1-43.[address] [facility]: [address] [facility] Platelet Count 227.0 k/uL 163.0-337.0 k/uL Final [facility]: [address] [facility] Mpv 11.1 fL 7.5-11.[address] [facility]: [address] [facility] High Neut% 73.1 % 34.0-67.9 % Final [facility]: [address] [facility] Low Lymph% 13.9 % 21.8-53.1 % Final [facility]: [address] [facility] Mon% 10.7 % 5.3-12.2 % Final [facility]: [address] [facility] Eos% 1.7 % 0.8-7.0 % Final [facility]: [address] [place] Baso% 0.6 % 0.2-1.2 % Final [facility]: [address] [place] High Neut# 6.1 x10*3/L 1.8-5.4 x10*3/L Final [facility]: [address] [place] Low Lymph# 1.2 x10*3/L 1.3-3.6 x10*3/L Final [facility]: [address] [place] High Mon# 0.9 x10*3/L 0.3-0.8 x10*3/L Final [facility]: [address] [place] Eos# 0.14 x10*3/L 0.04-0.54 x10*3/L Final [facility]: [address] Bennett [facility] [place] Baso# 0.05 x10*3/L 0.01-0.08 x10*3/L Final [facility]: [address] C[address] Kamara [facility] 09/29/2017 Ferritin, Serum or Plasma Low Ferritin 7.05 NG/mL 21.81- 274.66 NG/mL Final [facility]: [address] [facility] [facility] 09/29/2017 Rapid Flu (A+B) Type Flu a negative [facility]: [address] [place] [address] Type Flu B negative [facility]: [address] [facility] 07/12/2017 HbA1C (Hemoglobin a1C), Blood High A1C W/eag 6.6 % 1.0-5.7 % Final [facility]: [address] Kam[address] Average Blood Glucose 143 mg/dL Final [facility]: 55 [facility] 06/30/2017 CBC W/ Auto Diff Wbc 7.59 x10*3/L 4.23-9.07 x10*3/L Final [facility]: [address] [place] Low Rbc 3.54 10*12/L 4.63-6.08 10*12/L Final [facility]: [address] [facility] [facility] Low Hemoglobin 9.50 g/dL 13.70-17.50 g/dL Final [facility]: [address] [place] Low Hematocrit 31.8 % 40.1-51.0 % Final [facility]: [address] [place] Mcv 89.8 fL 80.0-100.[address] [facility]: [address] [place] Mch 26.8 pg 25.7-32.[address] [facility]: [address] [place] Low Mchc 29.9 g/dL 32.3-36.5 g/dL Final [facility]: [address] [place] High RDW-SD 47.8 fL 35.1-43.[address] [facility]: [address] [facility] Platelet Count 209.0 k/uL 163.0-337.0 k/uL Final [facility]: [address] [facility] Mpv 11.5 fL 7.5-11.[address] [facility]: [address] [facility] Neut% 65.6 % 34.0-67.9 % Final [facility]: [address] [place] Low Lymph% 19.5 % 21.8-53.1 % Final [facility] [facility] Mon% 12.3 % 5.3-12.2 % Final [facility]: [address] [facility] Eos% 2.2 % 0.8-7.0 % Final [facility]: [address] [facility] Baso% 0.4 % 0.2-1.2 % Final [facility]: [address] [facility] Neut# 5.0 x10*3/L 1.8-5.4 x10*3/L Final [facility]: [address] [facility] Lymph# 1.5 x10*3/L 1.3-3.6 x10*3/L Final [facility] [address] [facility] Mon# 0.9 x10*3/L 0.3-0.8 x10*3/L Final [facility]: [address] Eos# 0.17 x10*3/L 0.04-0.54 x10*3/L Final [facility]: [address] Baso# 0.03 x10*3/L 0.01-0.08 x10*3/L Final [facility]: [address] 03/02/2017 Testosterone, Total, Serum Low Testosterone, Total 54.51 NG/dL 220.91-715.81 NG/dL Final [facility]: [address] 02/23/2017 Testosterone, Total, Serum Low Testosterone, Total 85.31 NG/dL 220.91-715.81 NG/dL Final [facility]: [address] 02/15/2017 CMP, Serum or Plasma Alt 16 U/L 0-55 U/L Final [facility]: [address] Ast 15 U/L 5-34 U/L Final [facility]: [address] Bun 19.9 mg/dL 8.4-25.7 mg/dL Final [facility]: [address] Alk Phos 65 unit/L 40-150 unit/L Final [facility]: [address] High Glucose 139 mg/dL 70-99 mg/dL Final [facility]: [address] Albumin 3.5 g/dL 3.5-5.0 g/dL Final [facility]: [address] Creatinine 0.93 mg/dL 0.72-1.25 mg/dL Final [facility]: [address] eGFR Non- >60 mL/min/1.73m2 >60 mL/min/1.73m[address] [facility]: [address] Total Bilirubin 0.3 mg/dL 0.2-1.2 mg/dL Final [facility]: [address] eGFR - >60 mL/min/1.73m2 >60 mL/min/1.73m2 [address] [facility]: [address] Sodium 140 mEq/L 136-145 mEq/L Final [facility]: [address] Potassium 4.7 mEq/L 3.5-5.1 mEq/L Final [facility]: [address] Chloride 106 mmol/L 98-107 mmol/L Final [facility]: [address] Low Total Protein 6.1 g/dL 6.4-8.3 g/dL Final [facility]: [address] Low Calcium 8.4 mg/dL 8.8-10.0 mg/dL Final [facility]: [address] Co2 24.5 mmol/L 23.0-31.0 mmol/L Final [facility]: [address] Anion Gap [address] [facility]: [address] 02/15/2017 Lipid Panel, Serum Hdl 40 mg/dL 40-60 mg/dL Final [facility]: [address] Triglyceride 107 mg/dL 0-149 mg/dL Final [facility]: [address] VLDL Calc. 21 mg/dL Final [facility]: [address] cholesterol/HDL Ratio 4 mg/dL Final [facility]: [address] non-HDL Cholesterol Calc. 104 mg/dL 0-160 mg/dL Final [facility]: [address] Cholesterol 144 mg/dL 0-199 mg/dL Final [facility]: [address] LDL Calc. 83 mg/dL 0-130 mg/dL Final [facility]: [address] [place] [address], [place] 02/15/2017 PSA, Serum or Plasma PSA, Total 0.38 NG/mL <4.00 NG/mL Final [facility]: [address] 02/15/2017 HbA1C (Hemoglobin a1C), Blood High A1C W/eag 6.3 % 1.0-5.7 % Final [facility]: [address] [place] [address] Average Blood Glucose 134 mg/dL Final [facility]: [address] [place] 11/12/2016 CMP, Serum or Plasma High Glucose 107 mg/dL 65-99 mg/dL Final [facility]: [address] Normal Urea Nitrogen (BUN) 19 mg/dL 7-25 mg/dL Final [facility]: [address] [place] [address] Normal Creatinine 1.01 mg/dL 0.70-1.18 mg/dL Final [facility]: [address] Normal eGFR Non-afr. Faroese 72 mL/min/1.73m2 > or=60 mL/min/1.73m2 [address] [facility]: [address] [place] [address] Normal eGFR 84 mL/min/1.73m2 > or=60 mL/min/1.73m2 [address] [facility]: [address] BUN/creatinine Ratio not applicable (calc) 6-22 (calc) Final [facility]: [address] Normal Sodium 142 mmol/L 135-146 mmol/L Final [facility]: [address] Normal Potassium 4.5 mmol/L 3.5-5.3 mmol/L Final [facility]: [address] Normal Chloride 106 mmol/L 98-110 mmol/L Final [facility]: [address] Normal Carbon Dioxide 24 mmol/L 20-31 mmol/L Final [facility]: [address] Normal Calcium 8.7 mg/dL 8.6-10.3 mg/dL Final [facility]: [address] [facility] Low Protein, Total 6.0 g/dL 6.1-8.1 g/dL Final [facility]: [address] Normal Albumin 3.8 g/dL 3.6-5.1 g/dL Final [facility]: [address] Normal Globulin 2.2 g/dL (calc) 1.9-3.7 g/dL (calc) Final [facility]: [address] Normal Albumin/globulin Ratio 1.7 (calc) 1.0-2.5 (calc) Final [facility]: [address] Normal Bilirubin, Total 0.2 mg/dL 0.2-1.2 mg/dL Final [facility]: [address] Normal Alkaline Phosphatase 74 U/L 40-115 U/L Final [facility]: [address] Normal Ast 16 U/L 10-35 U/L Final [facility]: [address] Normal Alt 13 U/L 9-46 U/L Final [facility]: [address] 11/12/2016 Lipid Panel, Serum Normal Cholesterol, Total 156 mg/dL 125- 200 mg/dL Final [facility]: [address] Normal HDL Cholesterol 40 mg/dL > or=40 mg/dL Final [facility]: [address] Normal Triglycerides 136 mg/dL <150 mg/dL Final [facility]: [address] Normal LDL-cholesterol 89 mg/dL (calc) <130 mg/dL (calc) Final [facility]: [address] Normal Chol/hdlc Ratio 3.9 (calc) < or=5.0 (calc) Final [facility]: [address] Normal Non HDL Cholesterol 116 mg/dL (calc) Final [facility]: [address] 11/12/2016 HbA1C (Hemoglobin a1C), Blood High A1C W/eag 6.4 % 1.0-5.7 % Final [facility]: [address] Average Blood Glucose 137 mg/dL Final [facility]: [address] 08/03/2016 CMP, Serum or Plasma Alt 17.0 U/L 0.0-55.0 U/L Final [facility]: [address] Ast 18.0 U/L 5.0-34.0 U/L Final [facility]: [address] [place] Bun 24.0 mg/dL 8.0-26.0 mg/dL Final [facility]: [address] [facility] Alk Phos 90.0 unit/L 40.0-150.0 unit/L Final [facility]: [address] [facility] Glucose 70.0 mg/dL 70.0-99.0 mg/dL Final [facility]: [address] [facility] Albumin 3.8 g/dL 3.5-5.0 g/dL Final [facility]: [address] [facility] Creatinine 1.2 mg/dL 0.7-1.3 mg/dL Final [facility]: [address] [place] [address] Low eGFR Non- 59.0 mL/min/1.73m2 >60.0 mL/min/1.73m2 [address] [facility]: [address] Total Bilirubin 0.3 mg/dL 0.2-1.2 mg/dL Final [facility]: [address] eGFR - >60 mL/min/1.73m2 >60.0 mL/min/1.73m[address] [facility]: [address] [facility] Sodium 142.0 mEq/L 137.0-144.0 mEq/L Final [facility]: [address] [facility] Potassium 4.6 mEq/L 3.5-5.0 mEq/L Final [facility]: [address] [place] [address] Chloride 108.0 mmol/L 101.0-110.0 mmol/L Final [facility]: [address] [facility] Total Protein 6.4 g/dL 6.4-8.3 g/dL Final [facility]: [address] [facility] Calcium 8.7 mg/dL 8.4-10.2 mg/dL Final [facility]: [address] [facility] Co2 23 mmol/L 22-31 mmol/L Final [facility]: [address] Anion Gap 11.[address] [facility]: [address] [place] [address], [place] 08/03/2016 Lipid Panel, Serum Hdl 40.0 mg/dL 40.0-60.0 mg/dL Final [facility]: [address] High Triglyceride 253.0 mg/dL 0.0-149.0 mg/dL Final [facility]: [address] VLDL Calc. 50.6 mg/dL Final [facility]: [address] cholesterol/HDL Ratio 4.9 mg/dL Final [facility]: [address] non-HDL Cholesterol Calc. 155.0 mg/dL 0.0-160.0 mg/dL Final [facility]: [address] Cholesterol 195.0 mg/dL 0.0-199.0 mg/dL Final [facility]: [address] LDL Calc. 104.4 mg/dL 0.0-130.0 mg/dL Final [facility]: [address] [place] [address], [place] 08/03/2016 Potassium, Serum Potassium 4.6 mEq/L 3.5-5.0 mEq/L Final [facility]: [address] [place] [address], [place] 08/03/2016 HbA1C (Hemoglobin a1C), Blood High A1C W/eag 6.0 % 1.0-5.7 % Final [facility]: [address] Average Blood Glucose 126 mg/dL Final [facility]: [address] [place] [address], [place] 08/03/2016 Vitamin B12 + Folate, Serum or Blood Folate 5.6 NG/mL Final [facility]: [address] [place] [address] Vitamin B12 244 pg/mL 213-816 pg/mL Final [facility]: [address] 08/03/2016 Iron + Total Iron-binding Capacity (TIBC), Serum Normal Iron, Total 56 mcg/dL 50-180 mcg/dL Final [facility]: [address] Normal Iron Binding Capacity 356 mcg/dL (calc) 250-425 mcg/dL (calc) Final [facility]: [address] [place] [address] Normal % Saturation 16 % (calc) 15-60 % (calc) Final [facility]: [address] [place] [address] 07/27/2016 CBC W/ Auto Diff No observation recorded. [facility] [address], [place] 06/29/2016 Iron + Total Iron-binding Capacity (TIBC), Serum Normal Iron, Total 53 mcg/dL 50-180 mcg/dL Final [facility]: [address] [place] [address] Normal Iron Binding Capacity 360 mcg/dL (calc) 250-425 mcg/dL (calc) Final [facility]: [address] [place] [address] Normal % Saturation 15 % (calc) 15-60 % (calc) Final [facility]: [address] [place] [address] 06/29/2016 Potassium, Serum Potassium 4.9 mEq/L 3.5-5.0 mEq/L Final [facility]: [address] [place] [address], [place] 06/29/2016 Vitamin B12 + Folate, Serum or Blood Folate 5.2 NG/mL Final [facility]: [address] [place] [address] Vitamin B12 256.0 pg/mL 213.0-816.0 pg/mL Final [facility]: [address] [place] [address] 06/17/2016 Retic Count, Blood Normal Reticulocyte Count, Automated 1.3 % Final [facility]: [address] [place] [address] Normal Reticulocyte, Absolute 38686 cells/uL 97223-79975 cells/uL Final [facility]: [facility] [address] 06/17/2016 CBC W/ Auto Diff Wbc 5.65 x10*3/L 2.90-10.50 x10*3/L Final [facility]: [address] [place] [address] Rbc 3.78 10*12/L 3.61-5.21 10*12/L Final [facility]: [address] [place] [address] Low Hemoglobin 11.0 g/dL 12.3-17.5 g/dL Final [facility]: [address] [place] Low Hematocrit 34.9 % 37.1-51.3 % Final [facility]: [address] [place] Mcv 92.3 fL 79.4-101.[address] [facility]: [address] [place] Mch 29.1 pg 26.2-34.[address] [facility]: [address] [place] Mchc 31.5 g/dL 30.2-35.6 g/dL Final [facility]: [address] [place] RDW-SD 44.4 fL 35.8-49.[address] [facility]: [address] [place] Platelet Count 191.0 k/uL 118.8-347.0 k/uL Final [facility]: [address] [place] Mpv 10.9 fL 8.4-13.[address] [facility]: [address] [place] Neut% 63.0 % 39.1-76.5 % Final [facility]: [address] [place] Lymph% 21.4 % 13.8-46.8 % Final [facility]: [address] [place] Mon% 13.1 % 4.6-14.4 % Final [facility]: [address] [place] Eos% 2.100 % 0.001-7.300 % Final [facility] [address] [facility] Baso% 0.4 % 0.0-1.5 % Final [facility]: [address] [place] Neut# 3.6 x10*3/L 0.8-7.0 x10*3/L Final [facility]: [address] [place] Lymph# 1.2 x10*3/L 0.6-3.2 x10*3/L Final [facility]: [address] [place] Mon# 0.7 x10*3/L 0.2-1.0 x10*3/L Final [facility] [address] [facility] Eos# 0.12 x10*3/L 0.00-0.51 x10*3/L Final [facility]: [address] [place] [address] Baso# 0.020 x10*3/L 0.001-0.090 x10*3/L Final [facility] [address] [facility]2016 Hepatitis B Surface Ab, Quantitative, Serum Low Hepatitis B Surface Ab Immunity, Qn <5 mIU/mL > or=10 mIU/mL Final [facility] [address] [facility] [facility] 05/17/2016 Potassium, Serum High Potassium 5.1 mEq/L 3.5-5.0 mEq/L Final [facility]: [address] 04/08/2016 CBC W/ Auto Diff Wbc 6.04 x10*3/L 2.90-10.50 x10*3/L Final [facility]: [facility] Cathy vidya [address] Rbc 4.06 10*12/L 3.61-5.21 10*12/L Final [facility]: [address] Low Hemoglobin 12.0 g/dL 12.3-17.5 g/dL Final [facility]: [address] Hematocrit 37.8 % 37.1-51.3 % Final [facility]: [address] Mcv 93.1 fL 79.4-101.[address] [facility]: [address] Mch 29.6 pg 26.2-34.[address] [facility]: [address] Mchc 31.7 g/dL 30.2-35.6 g/dL Final [facility]: [address] RDW-SD 44.6 fL 35.8-49.[address] [facility]: [address] Platelet Count 199.0 k/uL 118.8-347.0 k/uL Final [facility]: [address] Mpv 10.9 fL 8.4-13.[address] [facility]: [address] [place] Neut% 70.1 % 39.1-76.5 % Final [facility]: [address] [place] Lymph% 18.5 % 13.8-46.8 % Final [facility]: [address] [place] Mon% 8.9 % 4.6-14.4 % Final [facility]: [address] [place] Eos% 2.000 % 0.001-7.300 % Final [facility]: [address] [place] Baso% 0.5 % 0.0-1.5 % Final [facility]: [address] [place] Neut# 4.2 x10*3/L 0.8-7.0 x10*3/L Final [facility]: [address] [place] Lymph# 1.1 x10*3/L 0.6-3.2 x10*3/L Final [facility]: [address] [place] Mon# 0.5 x10*3/L 0.2-1.0 x10*3/L Final [facility]: [address] [place] Eos# 0.12 x10*3/L 0.00-0.51 x10*3/L Final [facility]: [address] [place] Baso# 0.030 x10*3/L 0.001-0.090 x10*3/L Final [facility] 04/[facility] CMP, Serum or Plasma Alt 17.0 U/L 0.0-55.0 U/L Final [facility]: [address] [place] [address] Ast 15.0 U/L 5.0-34.0 U/L Final [facility]: [facility] Bun 22.0 mg/dL 8.0-26.0 mg/dL Final [facility]: [facility] Cathy Bennett [address] [place] [address] Alk Phos 85.0 unit/L 40.0-150.0 unit/L Final [facility]: [address], [place] Glucose 98.0 mg/dL 70.0-99.0 mg/dL Final [facility]: [address] [facility] Albumin 3.8 g/dL 3.5-5.0 g/dL Final [facility]: [address], [place] Creatinine 0.9 mg/dL 0.7-1.3 mg/dL Final [facility]: [address] [facility] eGFR Non- >60 mL/min/1.73m2 >60.0 mL/min/1.73m2 [address] [facility] [address] [facility] Total Bilirubin 0.2 mg/dL 0.2-1.2 mg/dL Final [facility]: [address] [facility] [facility] eGFR - >60 mL/min/1.73m2 >60.0 mL/min/1.73m[address] [facility] [address] [facility] Sodium 142.0 mEq/L 137.0-144.0 mEq/L Final [facility]: [address] [facility] High Potassium 5.6 mEq/L 3.5-5.0 mEq/L Final [facility]: [address] [facility] Chloride 108.0 mmol/L 101.0-110.0 mmol/L Final [facility]: [address] [facility] Total Protein 6.4 g/dL 6.4-8.3 g/dL Final [facility]: [address] [facility] Calcium 9.3 mg/dL 8.4-10.2 mg/dL Final [facility]: [address] [facility] Low Co2 22.5 mmol/L 23.0-31.0 mmol/L Final [facility]: [address] [facility] [facility] Anion Gap 11.[address] [facility]: [address] [facility] [facility] 04/08/2016 Lipid Panel, Serum Low Hdl 38.0 mg/dL 40.0-60.0 mg/dL Final [facility]: [address] [facility] High Triglyceride 196.0 mg/dL 0.0-149.0 mg/dL Final [facility]: [address] [address], [place] VLDL Calc. 39.2 mg/dL Final [facility]: [address] cholesterol/HDL Ratio 4.7 mg/dL Final [facility]: [address] [address], [place] non-HDL Cholesterol Calc. 142.0 mg/dL 0.0-160.0 mg/dL Final [facility]: [address] [address], [place] Cholesterol 180.0 mg/dL 0.0-199.0 mg/dL Final [facility]: [address] [address], [place] LDL Calc. 102.8 mg/dL 0.0-130.0 mg/dL Final [facility]: [address] [address], [place] 04/08/2016 HbA1C (Hemoglobin a1C), Blood High A1C W/eag 5.9 % 1.0-5.7 % Final [facility]: [address] Average Blood Glucose 122.6 mg/dL Final [facility]: [address] [address], [place] 01/29/2016 CBC W/ Auto Diff No observation recorded. 01/09/2016 CBC W/ Auto Diff No observation recorded. Electrocardiogram No observation recorded. [facility]: [address] [place] [address] Glucose, Fingerstick, Blood Blood Glucose: mg/dl 102 [facility]: [address] [place] [address] Past Encounters 10/21/2017 Left Lower Quadrant Pain; Nausea; Type II Diabetes Mellitus Uncontrolled; Hyperlipidemia; Atherosclerosis of Aorta; Chronic Pancreatitis Pacheco Deutsch MD: [address] [place] [phone], Ph. 10/19/2017 Left Lower Quadrant Pain; Angina Pectoris; Body Mass Index 25-29 - Overweight Pacheco Deutsch MD: [address] [place] [phone], Ph. 09/29/2017 At Risk for Falls; Depression Screening; Influenza-like Symptoms; Asthmatic Bronchitis; Allergic Rhinitis; Type II Diabetes Mellitus Uncontrolled; Anemia Spencer Jesus MD: [address] [place] [phone], Ph. 07/12/2017 Allergic Rhinitis; Type II Diabetes Mellitus Uncontrolled; Body Mass Index 25-29 - Overweight Pacheco Deutsch MD: [address] [place] [phone], Ph. 06/30/2017 Allergic Rhinitis; Upper Respiratory Infection; Acute Bronchitis; History of Anemia Spencer Jesus MD: [address] [place] [phone], Ph. 04/12/2017 Decreased Testosterone Level; Primary Erectile Dysfunction; Influenza Vaccination Pacheco Deutsch MD: [address] [place] [phone], Ph. 03/02/2017 Decreased Testosterone Level; Type 2 Diabetes Mellitus without Complication; Benign Essential Hypertension; Mixed Hyperlipidemia; Chronic Back Pain; Benign Prostatic Hyperplasia; Gastroesophageal Reflux Disease without Esophagitis; Body Mass Index 25-29 - Overweight; Adult Health Examination; Pneumococcal Vaccination Hannah Carrillo MD: [address] [place] [phone], Ph. 02/23/2017 Fatigue Hannah Carrillo MD: [address] [place] [phone], Ph. 02/22/2017 Type 2 Diabetes Mellitus; Benign Essential Hypertension; Mixed Hyperlipidemia; Chronic Back Pain; Benign Prostatic Hyperplasia; Gastroesophageal Reflux Disease without Esophagitis; Fatigue; Body Mass Index 25-29 - Overweight; Adult Health Examination; Pneumococcal Vaccination Hannah Carrillo MD: [address] [place] [phone], Ph. 02/15/2017 Type 2 Diabetes Mellitus; Mixed Hyperlipidemia; Benign Prostatic Hyperplasia Hannah Carrillo MD: [address] [place] [phone], Ph. 01/03/2017 Advance Directive Discussed with Patient; Body Mass Index 25-29 - Overweight; Type 2 Diabetes Mellitus without Complication; Mixed Hyperlipidemia; Low Back Pain; Benign Essential Hypertension; Benign Prostatic Hyperplasia; Cough; Angina Pectoris; Adult Health Examination; Requires Course of Hepatitis B Vaccination Hannah Carrillo MD: [address] [place] [phone], Ph. 11/23/2016 Type 2 Diabetes Mellitus; Mixed Hyperlipidemia; Benign Essential Hypertension; Chronic Pancreatitis; Atherosclerosis of Aorta; Carotid Bruit; Low Back Pain; Benign Prostatic Hyperplasia; Body Mass Index 25-29 - Overweight; Adult Health Examination; Viral Immunization Hannah Carrillo MD: [address] [place] [phone], Ph. 11/12/2016 Type 2 Diabetes Mellitus without Complication; Mixed Hyperlipidemia Hannah Carrillo MD: [address] [place] [phone], Ph. 11/04/2016 Near Syncope; Upper Respiratory Infection Pacheco Deutsch MD: [address] [place] [phone], Ph. 11/02/2016 Near Syncope; History of Placement of Stent for Coronary Artery Disease; Benign Essential Hypertension; Upper Respiratory Infection Pacheco Deutsch MD: [address] [place] [phone], Ph. 11/02/2016 Allergic Rhinitis; Upper Respiratory Infection; Gastroesophageal Reflux Disease without Esophagitis Pacheco Deutsch MD: [address] [place] [phone], Ph. 08/17/2016 Type 2 Diabetes Mellitus without Complication; Mixed Hyperlipidemia; Benign Essential Hypertension; Body Mass Index 25-29 - Overweight; Adult Health Examination Hannah Carrillo MD: [address] [place] [phone], Ph. 08/03/2016 Type 2 Diabetes Mellitus without Complication; Benign Essential Hypertension; Mixed Hyperlipidemia; Body Mass Index 25-29 - Overweight; Requires Course of Hepatitis B Vaccination; Pneumococcal Vaccination; Low Back Pain Hannah Carrillo MD: [address] [place] [phone], Ph. 06/29/2016 Anemia; Type 2 Diabetes Mellitus without Complication; Hyperkalemia; Low Back Pain; Benign Prostatic Hypertrophy with Outflow Obstruction; Body Mass Index 25- 29 - Overweight; Adult Health Examination; Requires Course of Hepatitis B Vaccination Hannah Carrillo MD: [address] [place] [phone], Ph. 06/17/2016 Anemia Hannah Carrillo MD: [address] [place] [phone], Ph. 05/17/2016 Anemia; Gastroesophageal Reflux Disease without Esophagitis; Mixed Hyperlipidemia; Hyperkalemia; Body Mass Index 25-29 - Overweight; Adult Health Examination; Type 2 Diabetes Mellitus without Complication Hannah Carrillo MD: [address] [place] [phone], Ph. 04/08/2016 Benign Essential Hypertension; Type 2 Diabetes Mellitus without Complication; Carotid Bruit; Heart Murmur; Mixed Hyperlipidemia; Benign Prostatic Hyperplasia; Gastroesophageal Reflux Disease without Esophagitis; Neuropathy; Osteoarthritis; Body Mass Index 25-29 - Overweight; Adult Health Examination; Influenza Vaccination; Headache; Anemia Hannah Carrillo MD: [address] [place] [phone], Ph. Social History Smoking Status Former Smoker Notes: QUIT : EARLY Vaccine List Vaccine Type Hep B, adult 06/29/2016 08/03/2016 01/03/2017 influenza, high dose seasonal 04/08/20160.5 mL 04/12/20170.5 mL influenza, unspecified formulation 06/17/2015 pneumococcal conjugate PCV 13 08/03/20160.5 mL zoster 11/23/20160.65 mL Plan of Care Patient Instructions advised flu neg ,resume fe /rtc 2weeks It was good to see you in the office today for your Medicare Annual Wellness Visit. You have been provided some information on healthy nutrition, including a diet rich in fruits and vegetables, minimizing simple carbohydrates, salt, and saturated fats. I want to encourage regular cardiovascular exercise such as walking at least 30 minutes daily, 5 times per week. Please remember to schedule any preventive health measures that we talked about today. You have also been provided education on fall prevention and community- based lifestyle interventions to help reduce health risks and promote healthy living in your [place] folder. Screening Recommendations 1. Vaccines Pneumococcal: Your next one in: 08/04 Influenza: This Fall Shingles: No further need Tetanus: Your next one in: 2025 2. Prostate Screening: Ordered 03/03 3. Colorectal cancer Screening Colonoscopy: No screening necessary Fecal Occult Blood: discussed today and information sent with patient in their [place] health folder 4. Bone Mass Measurement: discussed today 5. Eye Exam Screening: discussed today 6. Cholesterol Screening: Your next lipid panel in: 03/03 7. Diabetes Screening: Your next check in: 03/03 Reminders Provider Appointments None recorded. Lab None recorded. Referral None recorded. Procedures None recorded. Surgeries None recorded. Imaging None recorded. Vitals 10/21/2017 08:15AM Est Patient Height Weight Blood Pressure 5 ft 7 in 116/52 mm[Hg] 10/19/2017 03:00PM Work In Same Day Height Weight BMI Blood Pressure 5 ft 7 in 179 lbs 28 kg/m2 130/52 mm[Hg] 09/29/2017 02:30PM Est Patient Height Weight Blood Pressure 5 ft 7 in 130/48 mm[Hg] 07/12/2017 08:00AM Est Patient Height Weight BMI Blood Pressure 5 ft 7 in 185 lbs 29 kg/m2 140/60 mm[Hg] 06/30/2017 12:45PM Est Patient Height Weight BMI Blood Pressure 5 ft 7 in 185 lbs 29 kg/m2 108/62 mm[Hg] 04/12/2017 09:15AM Est Patient Height Weight BMI Blood Pressure 5 ft 7 in 182 lbs 28.5 kg/m2 120/50 mm[Hg] 03/02/2017 08:45AM Est Patient Height Weight BMI Blood Pressure 5 ft 7 in 183 lbs 28.7 kg/m2 134/60 mm[Hg] 02/22/2017 08:00AM Est Patient Height Weight BMI Blood Pressure 5 ft 7 in 183 lbs 28.7 kg/m2 136/60 mm[Hg] 01/03/2017 10:00AM AWV Height Weight BMI Blood Pressure 5 ft 7 in 176 lbs 27.6 kg/m2 130/60 mm[Hg] 11/23/2016 09:00AM Est Patient Height Weight BMI Blood Pressure 5 ft 7 in 174 lbs 27.3 kg/m2 130/62 mm[Hg] 11/04/2016 10:30AM Est Patient Height Weight BMI Blood Pressure 5 ft 7 in 179 lbs 28 kg/m2 108/63 mm[Hg] 11/02/2016 04:00PM Est Patient Height Weight BMI Blood Pressure 5 ft 7 in 178 lbs 27.9 kg/m2 (1) 116/58 mm[Hg] (2) 112/58 mm[Hg] 11/02/2016 10:15AM Est Patient Height Weight BMI Blood Pressure 5 ft 7 in 178 lbs 27.9 kg/m2 134/70 mm[Hg] 08/17/2016 08:00AM Est Patient Height Weight BMI Blood Pressure 5 ft 7 in 180 lbs 28.2 kg/m2 132/67 mm[Hg] 08/03/2016 08:45AM Est Patient Height Weight BMI Blood Pressure 5 ft 7 in 181 lbs 28.3 kg/m2 149/73 mm[Hg] 06/29/2016 02:30PM Est Patient Height Weight BMI Blood Pressure 5 ft 7 in 179 lbs 28 kg/m2 115/55 mm[Hg] 05/17/2016 08:15AM Est Patient Height Weight BMI Blood Pressure 5 ft 7 in 179 lbs 28 kg/m2 111/61 mm[Hg] 04/08/2016 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
--- NOTE | 2019-04-18 18:05 | Diagnostic Imaging Report ---
EXAMINATION: CHEST SINGLE (PORTABLE) INDICATION: Fall, on left side mild tenderness to shoulder COMPARISON: None FINDINGS: TUBES and LINES: None. LUNGS: Lungs are well inflated. Lungs are clear. There is no evidence of pneumonia or pulmonary edema. PLEURA: No pleural effusion or pneumothorax. HEART AND MEDIASTINUM: The cardiomediastinal silhouette is unremarkable. BONES AND SOFT TISSUES: No acute osseous lesion. Postoperative changes of the left shoulder suggesting Gallo procedure. Degenerative changes of the left glenohumeral joint. 2 small orthopedic anchor is projected on the left humeral head. UPPER ABDOMEN: No free air under the diaphragm. IMPRESSION: No acute thoracic abnormality. Signed by: Dr. Geovanny Sharp M.D. on 04/18/2019 6:02 PM
--- NOTE | 2019-04-18 18:30 | Diagnostic Imaging Report ---
History: Fall, on Plavix Comparison studies:None Technique: Axial images were obtained from the brain and cervical spine. Coronal and sagittal images reconstructed from the axial data. Intravenous contrast: None Dose modulation, iterative reconstruction, and/or weight based adjustment of the mA/kV was utilized to reduce the radiation dose to as low as reasonably achievable. Findings: Head CT: Scalp/skull: No abnormalities. No fractures, blastic or lytic lesions. Brain sulci: Mildly prominent. Ventricles: Normal in size and configuration. No hydrocephalus. Extra-axial spaces: No masses. No fluid collections. Parenchyma: No abnormal densities. No masses, hemorrhage, acute or chronic cortical vascular insults. Sellar/suprasellar region: No abnormalities. Craniocervical junction: Patent foramen magnum. No Chiari one malformation. Incidental findings: Atherosclerotic calcifications in the carotid siphons . Cervical spine CT: Fractures: None. Soft tissues: No gross abnormalities. Atlantoaxial articulation: No acute abnormality. Alignment: Normal lordosis. No scoliosis. Cervicomedullary junction: No abnormalities. Patent foramen magnum. Vertebrae: No infection or neoplasm. Degenerative changes: Uncinate processes and facet hypertrophy results in mild right foraminal narrowing at C4-5, mild right and severe left foraminal narrowing at C5-6. Decreased intervertebral space at C5-6. Degenerative changes of the partial joint. Incidental findings: Atherosclerotic calcifications of the carotid bulbs. Impression: Head CT: 1. No acute intracranial abnormality. Cervical spine CT: 1. No acute abnormalities. Degenerative changes as described 2. Cannot exclude ligament, spinal cord and or vascular abnormalities on the basis of this examination. Signed by: DR Naga Kirby M.D. on 04/18/2019 6:26 PM
--- NOTE | 2019-04-18 18:40 | NUR ---
LANDY POTTS AT BEDSIDE APPLYING DRESSINGS TO ABRASIONS ON LT ARM AND CLEANING SMALL HEAD LAC.
[2019-04-18 19:37] VITALS: BP 128/57
== END 2019-04-18 19:35 | disposition home or self-care (01) ==
LOC: ER 17:06
DX: S01.81XA Laceration without foreign body of other part of head, initial encounter (principal); S50.312A Abrasion of left elbow, initial encounter; S60.812A Abrasion of left wrist, initial encounter; S60.512A Abrasion of left hand, initial encounter; W01.0XXA Fall on same level from slipping, tripping and stumbling without subsequent striking against object, initial encounter; Y92.008 Other place in unspecified non-institutional (private) residence as the place of occurrence of the external cause; Z95.5 Presence of coronary angioplasty implant and graft; Z79.01 Long term (current) use of anticoagulants; I10 Essential (primary) hypertension; E11.9 Type 2 diabetes mellitus without complications; I25.10 Atherosclerotic heart disease of native coronary artery without angina pectoris; Z86.73 Personal history of transient ischemic attack (TIA), and cerebral infarction without residual deficits
CPT/HCPCS: 70450; 71045; 72125; 99283

== ENCOUNTER → 2020-11-03 | Day surgery (SDC) | payer MEDICARE ==
[2020-10-30 09:50] LABS: BASOPHILS # (AUTO) 0.1 (0.0-0.1); BASOPHILS % 0.6 % (0.0-1.0); EOSINOPHILS # (AUTO) 0.2 (0.0-0.4); EOSINOPHILS % 1.9 % (0.0-6.0); HEMATOCRIT 32.3 % (38.2-49.6); HEMOGLOBIN 10.3 g/dL (14.0-18.0); LYMPHOCYTES # (AUTO) 1.6 (1.0-3.2); LYMPHOCYTES % 18.4 % (18.0-39.1); MEAN CORPUSCULAR HEMOGLOBIN 28.5 pg (28-32); MEAN CORPUSCULAR HGB CONC 31.9 g/dL (31-35); MEAN CORPUSCULAR VOLUME 89.5 fL (81-99); MONOCYTES # (AUTO) 0.8 (0.2-0.8); MONOCYTES % 8.8 % (4.4-11.3); NEUTROPHILS # (AUTO) 6.1 (2.1-6.9); NEUTROPHILS % 69.2 % (38.7-80.0); PLATELET COUNT 277 x10e3/uL (140-360); RED BLOOD COUNT 3.61 x10e6/uL (4.3-5.7); RED CELL DISTRIBUTION WIDTH 13.9 % (11.7-14.4)
[~2020-11-03] MED LIST changes: +CRESTOR10 MG PO; +DEXTROSE 5% 250ML 250 ML IV ONE; +FINASTERIDE5 MG PO; +HYDROXYCHLOROQ100 GM PO; +LIDOCAINE HCL 2% LOCAL INJ 5 ML SDV VIAL INJ ONE; +PLAVIX75 MG PO; +PREDNISONE5 MG PO; +PROPOFOL IV EMULSION 10 MG/ML 20 ML VIAL ONE
[2020-11-03 14:34] VITALS: BP 137/53
[2020-11-03 14:45] LABS: WBC,FECAL (FECAL LACTOFERRIN) POSITIVE (NEGATIVE)
[2020-11-04 11:35] LABS: C DIFFICILE TOXIN A&B AMP PROB NEGATIVE (NEGATIVE)
== END | disposition home or self-care (01) ==
LOC: OR 09:11
PROVIDERS: ATTEND Internal Medicine Gastroenterology
DX: D62 Acute posthemorrhagic anemia (principal); K29.50 Unspecified chronic gastritis without bleeding; K52.9 Noninfective gastroenteritis and colitis, unspecified; D3A.8 Other benign neuroendocrine tumors; K21.9 Gastro-esophageal reflux disease without esophagitis; K20.90 Esophagitis, unspecified without bleeding; K44.9 Diaphragmatic hernia without obstruction or gangrene; K57.30 Diverticulosis of large intestine without perforation or abscess without bleeding; K64.8 Other hemorrhoids; E11.9 Type 2 diabetes mellitus without complications; I10 Essential (primary) hypertension; I25.10 Atherosclerotic heart disease of native coronary artery without angina pectoris; I25.2 Old myocardial infarction; R06.02 Shortness of breath; H91.90 Unspecified hearing loss, unspecified ear; Z88.6 Allergy status to analgesic agent; Z01.810 Encounter for preprocedural cardiovascular examination; Z01.812 Encounter for preprocedural laboratory examination; Z20.822 Contact with and (suspected) exposure to COVID-19; Z79.02 Long term (current) use of antithrombotics/antiplatelets; Z79.84 Long term (current) use of oral hypoglycemic drugs; Z79.82 Long term (current) use of aspirin; Z86.73 Personal history of transient ischemic attack (TIA), and cerebral infarction without residual deficits; Z95.5 Presence of coronary angioplasty implant and graft
CPT/HCPCS: 36415 ×2; 43239; 43251; 45380; 82948; 83630; 83993; 85025; 87045; 87177; 87328; 87493; 93005; J2001; J2704; J7070; U0002; 45378

== ENCOUNTER → 2021-01-02 | Day surgery (SDC) | payer MEDICARE ==
[2020-12-31 14:33] LABS: BASOPHILS % 0.4 % (0.0-1.0); EOSINOPHILS # (AUTO) 0.1 (0.0-0.4); EOSINOPHILS % 1.8 % (0.0-6.0); HEMATOCRIT 30.6 % (38.2-49.6); HEMOGLOBIN 9.5 g/dL (14.0-18.0); LYMPHOCYTES # (AUTO) 1.1 (1.0-3.2); MEAN CORPUSCULAR HEMOGLOBIN 28.6 pg (28-32); MEAN CORPUSCULAR VOLUME 92.2 fL (81-99); MONOCYTES # (AUTO) 0.8 (0.2-0.8); NEUTROPHILS # (AUTO) 4.6 (2.1-6.9); NEUTROPHILS % 68.5 % (38.7-80.0); PLATELET COUNT 204 x10e3/uL (140-360); RED BLOOD COUNT 3.32 x10e6/uL (4.3-5.7); RED CELL DISTRIBUTION WIDTH 14.3 % (11.7-14.4)
[~2021-01-02] MED LIST changes: -DEXTROSE 5% 250ML 250 ML IV ONE; +FORTEO2.4 ML INJ; +HEMOCYTE PLUS1 EACH PO; +PREVAGEN PO
[2021-01-02 10:05] VITALS: BP 154/55
== END | disposition home or self-care (01) ==
LOC: ENDO 06:00
PROVIDERS: ATTEND Internal Medicine Gastroenterology
DX: K29.50 Unspecified chronic gastritis without bleeding (principal); K44.9 Diaphragmatic hernia without obstruction or gangrene; Z01.812 Encounter for preprocedural laboratory examination; Z88.5 Allergy status to narcotic agent; E11.9 Type 2 diabetes mellitus without complications; E78.5 Hyperlipidemia, unspecified; D64.9 Anemia, unspecified; Z85.028 Personal history of other malignant neoplasm of stomach
CPT/HCPCS: 36415 ×2; 43239; 82948; 85025; J2001; J2704

== ENCOUNTER 2021-02-11 14:56 | Inpatient (IN) | payer MEDICARE ==
[~2021-02-11] VITALS: Ht 170.2 cm; Wt 74.4 kg
[~2021-02-11 14:56] MED LIST changes: -LIDOCAINE HCL 2% LOCAL INJ 5 ML SDV VIAL INJ ONE; -PROPOFOL IV EMULSION 10 MG/ML 20 ML VIAL ONE
[2021-02-11 15:49] LABS: BASOPHILS % 0.6 % (0.0-1.0); EOSINOPHILS # (AUTO) 0.1 (0.0-0.4); HEMATOCRIT 32.4 % (38.2-49.6); LYMPHOCYTES # (AUTO) 0.7 (1.0-3.2); MEAN CORPUSCULAR HEMOGLOBIN 28.3 pg (28-32); MEAN CORPUSCULAR HGB CONC 30.9 g/dL (31-35); MEAN CORPUSCULAR VOLUME 91.8 fL (81-99); MONOCYTES # (AUTO) 0.6 (0.2-0.8); MONOCYTES % 9.3 % (4.4-11.3); NEUTROPHILS # (AUTO) 5.4 (2.1-6.9); NEUTROPHILS % 78.8 % (38.7-80.0); PLATELET COUNT 203 x10e3/uL (140-360); RED BLOOD COUNT 3.53 x10e6/uL (4.3-5.7); RED CELL DISTRIBUTION WIDTH 14.2 % (11.7-14.4)
[2021-02-11 16:07] LABS: ALBUMIN 3.7 g/dL (3.5-5.0); ALBUMIN/GLOBULIN RATIO 1.5 (0.8-2.0); ANION GAP 15.3 mmol/L (8-16); CALCIUM 8.5 mg/dL (8.4-10.2); CREATININE, SERUM 1.39 mg/dL (0.72-1.25); POTASSIUM 4.3 mmol/L (3.5-5.1)
[2021-02-11 18:23] VITALS: BP 118/62
[2021-02-11 18:26] VITALS: BP 118/62
[2021-02-11 20:00] VITALS: BP 118/62
[2021-02-11] MEDS ORDERED: DEXTROSE 50% SYRINGE 50 ML IV PRN (20:30)
[2021-02-11] MEDS: INSULIN REGULAR, HUMAN 100 UNIT/1 ML SQ SCH (21:00)
[2021-02-12] VITALS (9 sets, daily range): BP systolic 109–162; BP diastolic 26–82
[2021-02-12] MEDS: SIMVASTATIN 20 MG TAB PO SCH ×2 (02:16→21:34)
[2021-02-12] MEDS ORDERED: LEXAPRO10 MG PO (04:49)
[2021-02-12] MEDS ORDERED: GABAPENTIN300 MG PO (04:52)
[2021-02-12] MEDS ORDERED: FEOSOL325 MG PO (04:52)
[2021-02-12] MEDS ORDERED: ASCORBIC ACID500 M2 PO (04:54)
[2021-02-12] MEDS ORDERED: FLOMAX0.4 MG PO (04:59)
[2021-02-12] MEDS ORDERED: OMEPRAZOLE PO (04:59)
[2021-02-12] MEDS ORDERED: HYDROCODONE PO (05:12)
[2021-02-12 05:35] LABS: BASOPHILS # (AUTO) 0.1 (0.0-0.1); BASOPHILS % 0.7 % (0.0-1.0); EOSINOPHILS # (AUTO) 0.2 (0.0-0.4); EOSINOPHILS % 2.2 % (0.0-6.0); HEMATOCRIT 32.6 % (38.2-49.6); HEMOGLOBIN 10.1 g/dL (14.0-18.0); LYMPHOCYTES # (AUTO) 1.9 (1.0-3.2); LYMPHOCYTES % 27.9 % (18.0-39.1); MEAN CORPUSCULAR HEMOGLOBIN 28.4 pg (28-32); MEAN CORPUSCULAR VOLUME 91.6 fL (81-99); MONOCYTES # (AUTO) 0.8 (0.2-0.8); MONOCYTES % 11.3 % (4.4-11.3); NEUTROPHILS # (AUTO) 3.9 (2.1-6.9); NEUTROPHILS % 57.6 % (38.7-80.0); PLATELET COUNT 200 x10e3/uL (140-360); RED BLOOD COUNT 3.56 x10e6/uL (4.3-5.7)
[2021-02-12 06:00] LABS: ANION GAP 15.4 mmol/L (8-16); CALCIUM 8.2 mg/dL (8.4-10.2); CREATININE, SERUM 1.19 mg/dL (0.72-1.25); POTASSIUM 4.4 mmol/L (3.5-5.1)
[2021-02-12] MEDS: INSULIN REGULAR, HUMAN 100 UNIT/1 ML SQ SCH ×4 (07:18→21:00)
[2021-02-12] MEDS: CLOPIDOGREL BISULFATE 75 MG TAB PO SCH (08:46)
[2021-02-12] MEDS: ASPIRIN 81 MG CHEW TAB PO SCH (08:46)
[2021-02-12] MEDS: FINASTERIDE 5 MG TAB PO SCH (08:46)
[2021-02-12] MEDS ORDERED: GLYBURIDE 5 MG TAB PO SCH (09:00)
[2021-02-13] VITALS: BP 138/56
[2021-02-13 04:00] VITALS: BP 153/49
[2021-02-13] MEDS: INSULIN REGULAR, HUMAN 100 UNIT/1 ML SQ SCH ×3 (07:30→16:30)
[2021-02-13] MEDS ORDERED: GLYBURIDE 5 MG TAB PO SCH (08:00)
[2021-02-13 08:09] VITALS: BP 171/53
[2021-02-13 08:25] VITALS: BP 171/53
[2021-02-13] MEDS ORDERED: REGADENOSON 0.4 MG/5 ML SYR IV ONE (11:16)
[2021-02-13] MEDS: ASPIRIN 81 MG CHEW TAB PO SCH (13:08)
[2021-02-13] MEDS: CLOPIDOGREL BISULFATE 75 MG TAB PO SCH (13:08)
[2021-02-13] MEDS: FINASTERIDE 5 MG TAB PO SCH (13:09)
[2021-02-13] MEDS ORDERED: AMLODIPINE BESYLATE 10 MG TAB PO SCH (14:30)
[2021-02-13] MEDS ORDERED: AMLODIPINE BESYLATE 5 MG TAB PO SCH (14:30)
[2021-02-13 16:55] VITALS: BP 178/61
[2021-02-13 19:47] VITALS: BP 174/68
== END 2021-02-13 20:10 | disposition home or self-care (01) | DRG 312 ==
LOC: ER 15:17 → ERHOLD 16:42 → MED/SURG 18:23 → OBSVTOIN 02-13 09:28
PROVIDERS: ADMIT Family Medicine; ATTEND Family Medicine
DX: R55 Syncope and collapse (principal); I65.21 Occlusion and stenosis of right carotid artery; I25.10 Atherosclerotic heart disease of native coronary artery without angina pectoris; I77.9 Disorder of arteries and arterioles, unspecified; E11.9 Type 2 diabetes mellitus without complications; R53.81 Other malaise; Z86.73 Personal history of transient ischemic attack (TIA), and cerebral infarction without residual deficits; E78.5 Hyperlipidemia, unspecified; Z95.5 Presence of coronary angioplasty implant and graft; E11.51 Type 2 diabetes mellitus with diabetic peripheral angiopathy without gangrene; Z79.899 Other long term (current) drug therapy; Z20.822 Contact with and (suspected) exposure to COVID-19
CPT/HCPCS: 36415; 70450; 70544; 70547; 70551; 71045; 78452; 80048; 80053; 82948; 83880; 84484; 85025; 93005; 93017; 93306; 93880; 99284; A9502; G0378; U0002

== ENCOUNTER → 2021-02-27 | Outpatient (CLI) | payer MEDICARE ==
[~2021-02-27] MED LIST changes: +ASCORBIC ACID500 M2 PO; +FEOSOL325 MG PO; +FLOMAX0.4 MG PO; +GABAPENTIN300 MG PO; +HYDROCODONE PO; +LEXAPRO10 MG PO; +OMEPRAZOLE PO
== END ==
LOC: LAB 10:31
PROVIDERS: ATTEND Internal Medicine Cardiovascular Disease
DX: Z01.812 Encounter for preprocedural laboratory examination (principal); Z20.822 Contact with and (suspected) exposure to COVID-19
CPT/HCPCS: U0002

== ENCOUNTER → 2021-03-05 | Outpatient (CLI) | payer MEDICARE | LOC: LAB 11:37 | PROVIDERS: ATTEND Urology | DX: Z01.812 Encounter for preprocedural laboratory examination (principal); Z20.822 Contact with and (suspected) exposure to COVID-19 | CPT/HCPCS: U0002 ==

== ENCOUNTER → 2022-05-12 | Outpatient (CLI) | payer MEDICARE | LOC: DX 09:43 | PROVIDERS: ATTEND Internal Medicine Gastroenterology | DX: D64.89 Other specified anemias (principal) | CPT/HCPCS: 74250 ==

== ENCOUNTER 2022-08-03 11:30 | Emergency (ER) | payer MEDICARE ==
[~2022-08-03] VITALS: Ht 170.2 cm; Wt 74.4 kg
[2022-08-03] MEDS ORDERED: DEXTROSE 50% SYRINGE 50 ML IV ONE (12:45)
[2022-08-03] MEDS ORDERED: DEXTROSE 5% 1,000 ML IV ONE ×2 (12:45→12:47)
[2022-08-03 12:49] LABS: BASOPHILS % 0.3 % (0.0-1.0); HEMATOCRIT 25.3 % (38.2-49.6); LYMPHOCYTES # (AUTO) 0.3 (1.0-3.2); LYMPHOCYTES % 8.5 % (18.0-39.1); MEAN CORPUSCULAR HEMOGLOBIN 29.9 pg (28-32); MEAN CORPUSCULAR HGB CONC 31.6 g/dL (31-35); MEAN CORPUSCULAR VOLUME 94.4 fL (81-99); MONOCYTES # (AUTO) 0.3 (0.2-0.8); MONOCYTES % 10.7 % (4.4-11.3); NEUTROPHILS # (AUTO) 2.5 (2.1-6.9); NEUTROPHILS % 79.9 % (38.7-80.0); RED BLOOD COUNT 2.68 x10e6/uL (4.3-5.7); RED CELL DISTRIBUTION WIDTH 13.2 % (11.7-14.4)
[2022-08-03 12:50] LABS: PLATELET COUNT 110 x10e3/uL (140-360)
[2022-08-03 13:05] LABS: ALBUMIN 2.8 g/dL (3.5-5.0); ALBUMIN/GLOBULIN RATIO 1.1 (0.8-2.0); ANION GAP 13.6 mmol/L (8-16); CALCIUM 7.1 mg/dL (8.4-10.2); CREATININE, SERUM 0.88 mg/dL (0.72-1.25); MAGNESIUM 1.6 MG/DL (1.3-2.1); POTASSIUM 3.6 mmol/L (3.5-5.1)
== END 2022-08-03 15:00 | disposition home or self-care (01) ==
LOC: ER 11:36
DX: R05.9 Cough, unspecified (principal); U07.1 COVID-19; I10 Essential (primary) hypertension; E11.9 Type 2 diabetes mellitus without complications; I25.10 Atherosclerotic heart disease of native coronary artery without angina pectoris; Z86.73 Personal history of transient ischemic attack (TIA), and cerebral infarction without residual deficits; Z95.5 Presence of coronary angioplasty implant and graft
CPT/HCPCS: 36415; 71045; 80053; 82948; 83735; 85025; 99284; J7070; J7799